=== PATIENT | female | born 1940 | race Caucasian/White ===

== ENCOUNTER 2023-08-29 11:12 | Outpatient (RCR) | payer OTHER, SELFPAY | END 2023-08-29 23:59 | disposition home or self-care (01) | LOC: CRHB 11:12 | PROVIDERS: ATTENDING PHYSICIAN Internal Medicine Cardiovascular Disease; FAMILY PHYSICIAN Internal Medicine Geriatric Medicine | DX: Z95.4 Presence of other heart-valve replacement (principal); I25.10 Atherosclerotic heart disease of native coronary artery without angina pectoris | CPT/HCPCS: G0422; G0423 ==

== ENCOUNTER 2023-09-29 11:59 | Outpatient (RCR) | payer OTHER, SELFPAY | END 2023-09-29 23:59 | disposition home or self-care (01) | LOC: CRHB 11:59 | PROVIDERS: ATTENDING PHYSICIAN Internal Medicine Cardiovascular Disease; FAMILY PHYSICIAN Internal Medicine Geriatric Medicine | DX: I35.0 Nonrheumatic aortic (valve) stenosis (principal); Z95.4 Presence of other heart-valve replacement; I10 Essential (primary) hypertension | CPT/HCPCS: G0422; G0423 ==

== ENCOUNTER 2023-10-31 11:40 | Outpatient (RCR) | payer OTHER, SELFPAY | END 2023-10-31 23:59 | disposition home or self-care (01) | LOC: CRHB 11:40 | PROVIDERS: ATTENDING PHYSICIAN Internal Medicine Cardiovascular Disease; FAMILY PHYSICIAN Internal Medicine Geriatric Medicine | DX: I35.0 Nonrheumatic aortic (valve) stenosis (principal); Z95.4 Presence of other heart-valve replacement | CPT/HCPCS: G0422; G0423 ==

== ENCOUNTER 2023-11-07 11:38 | Outpatient (RCR) | payer OTHER, SELFPAY | END 2023-11-07 23:59 | disposition home or self-care (01) | LOC: CRHB 11:38 | PROVIDERS: ATTENDING PHYSICIAN Internal Medicine Cardiovascular Disease; FAMILY PHYSICIAN Internal Medicine Geriatric Medicine | DX: Z95.4 Presence of other heart-valve replacement (principal) | CPT/HCPCS: G0422; G0423 ==

== ENCOUNTER → 2023-11-13 13:25 | Outpatient (REF) | payer OTHER, SELFPAY | LOC: MRI 13:25 | PROVIDERS: ATTENDING PHYSICIAN Otolaryngology; FAMILY PHYSICIAN Internal Medicine Geriatric Medicine | DX: H90.42 Sensorineural hearing loss, unilateral, left ear, with unrestricted hearing on the contralateral side (principal) | CPT/HCPCS: 70551 ==

== ENCOUNTER 2024-04-28 18:50 | Inpatient (IN) | payer OTHER, SELFPAY ==
[2024-04-28] VITALS (9 sets, daily range): BP systolic 104–141; BP diastolic 57–97; BMI 25.9; BMI 25.0
[2024-04-28 13:35] LABS: % Basophils 0.4 % (0-2); % Eosinophils 0.2 % (0-6); % Immature Granulocytes 0.3 % (0-0.5); % Lymphocytes 8.5 % (20.5-51.1); % Neutrophils 86.6 % (42.2-75.2); Absolute Basophils 0.1 10^3/uL (0-0.2); Absolute Lymphocytes 1.1 10^3/uL (1.2-3.4); Absolute Monocytes 0.5 10^3/uL (0.1-0.6); Absolute Neutrophils 11.4 10^3/uL (1.4-6.5); Hematocrit 47.5 % (37.0-47.0); Mean Corp Hgb Conc. 33.7 g/dL (33.0-37.0); Mean Corpuscular Hgb 30.7 pg (27.0-31.0); Mean Corpuscular Volume 91.2 fL (81.0-99.0); Mean Platelet Volume 9.5 fL (7.4-10.4); Nucleated Red Blood Cells % 0 %; Platelet Count 205 10^3/uL (130-400); Red Blood Cell Count 5.21 10^6/uL (4.20-5.40); Red Cell Dist. Width 13.9 % (11.5-14.5); White Blood Cell Count 13.1 10^3/uL (4.8-10.8)
--- NOTE | 2024-04-28 13:43 | ED.GENMED ---
History of Present Illness
General
Chief Complaint: Abdominal Pain
Time Seen by Provider: 04/28/24 13:15
History of Present Illness
History of Present Illness:
83-year-old female presents to the emergency department for evaluation of abdominal distention and lower abdominal discomfort beginning this morning, gradually worsening throughout the day. States that she cannot zip up her pants secondary to
distention. No fevers or chills. Denies any nausea or vomiting. Prior abdominal surgeries include hernia repair x 3, hysterectomy, and cholecystectomy.
Past History
Past History
ED Past Medical History: GERD, HTN, Hypothyroidism and Other (fainting spells)
ED Past Surgical History: Cardiac (Pacemaker), Cholecystectomy, Gynecological (Hysterectomy), Tonsilectomy and Other (Pancreas stent, hernias, )
Social History
Tobacco: Non-smoker
Alcohol: None
Personal:
Living: assisted living
Review of Systems
Review of Systems
Allergies reviewed?: Yes
All Other Systems: ROS reviewed and negative except as documented in HPI and ROS
Phy Exam
Physical Exam
Physical Exam:
GEN: Well appearing, NAD, WDWN
Eyes: PERRLA, EOMs intact, no scleral icterus
HENT: NCAT, oral mucosa moist
Lungs: CTAB, no wheezes, rales, rhonchi, normal chest wall excursion
Cardiac: RRR, no M/R/G, no peripheral edema. Radial pulses 2+ bilat
Abdomen: Soft, mildly distended predominantly lower abdomen, diffusely tender to all 4 quadrants, no rigidity
Neuro: AO x 3
MSK: No gross deformity or ecchymosis. No edema. No digital clubbing
Skin: No rashes, petechiae. Normal color, no pallor or jaundice.
Psych: Calm, cooperative, proper hygiene
Course
Orders/Labs/Results
Orders:
Orders
04/28/24 13:20
EKG [Electrocardiogram (*1)] Urgent
Reason for Study: Abdominal Pain
EKG- Treatment ONCE
04/28/24 13:23
Complete Blood Count/With Diff Urgent
Comprehensive Metabolic Panel Urgent
Lipase Urgent
Comment: ADD ON
04/28/24 13:43
Add On- LAB Urgent
Tests Added?: lipase
CT Abd/pel W Iv And Oral Contr Urgent
Comment:
Reason For Exam: abd pain/distention
Iohexol [Omnipaque] See Protocol PO NOW STA
04/28/24 14:03
Lactic Acid Urgent
04/28/24 15:45
Urinalysis Reflex To Culture Urgent
Date Specimen was Collected: 04/28/24
Time Specimen was Collected: 13:21
04/28/24 17:15
0.9% Sodium Chloride 1000 ml [Nss] 1,000 ml IV BOLUS
Morphine Sulfate 2 mg IV NOW STA
Ondansetron Injectable [Zofran] 4 mg IV NOW STA
04/28/24 18:15
Admit/Transfer Patient As Directed
Co-Sign Provider:
Level of Care: Inpatient admission
Assign to:: Telemetry
Physician / Group: Tristin
Diagnosis: Acute pancreatitis
Reason for Telemetry: Other
Other Reason for Telemetry: pancreatitis ;pacer in pace
Date to Stop Telemetry: 04/30/24
Time to Stop Telemetry: 11:00
Reason for Hospitalization: see progress note
Expected length of stay greater than two midnights?: Yes
ELOS- Estimated Length of Stay in days: 4
I certify the patient meets the requirements for IP care: Yes
04/28/24 18:16
PRN Pain Medication Management As Directed
May give lesser potent ordered pain med per pt: Yes
preference::
Protocol:: Medication orders for pain may be administered in a
manner that supports deferring to patient preference
when the pt is:
- Requesting an ordered lesser potent pain medication.
Least to most potent pain medications are defined
as: acetaminophen < NSAID < tramadol < opioids
(morphine, oxycodone, hydromorphone).
- Requesting a lesser dose of the same medication IF
ORDERED.
- Requesting a less intrusive route of administration
if both routes are prescribed by the provider (PO <
IV).
04/28/24 18:17
Code Status As Directed
Resuscitation Status: Full Code
04/30/24 11:00
DC Protocol for Telemetry ONCE
Abnormal Lab Results
04/28/24
13:23
WBC 13.1 H 10^3/uL
(4.8-10.8)
Hct 47.5 H %
(37.0-47.0)
Absolute Neuts (auto) 11.4 H 10^3/uL
(1.4-6.5)
Absolute Lymphs (auto) 1.1 L 10^3/uL
(1.2-3.4)
Neutrophils % 86.6 H %
(42.2-75.2)
Lymphocytes % 8.5 L %
(20.5-51.1)
BUN 18 H mg/dl
(7-17)
Glucose 116 H mg/dl
(70-99)
Lipase 3661 H* U/L
(23-300)
04/28/24 13:23
04/28/24 13:23
Vital Signs
Initial and Last Documented VS:
Initial Vital Signs
Temp Pulse Resp BP Pulse Ox
98.3 F 76 18 115/74 98
04/28/24 13:24 04/28/24 13:24 04/28/24 13:24 04/28/24 13:24 04/28/24 13:24
Last Documented Vital Signs
Temp Pulse Resp BP Pulse Ox
98.3 F 76 18 104/57 94
04/28/24 13:24 04/28/24 13:24 04/28/24 13:24 04/28/24 17:45 04/28/24 17:46
MDM/Problems Addressed
MDM/Problems Addressed:
Labs reveal acute pancreatitis, CT without evidence for acute process. Will admit for further management
*Critical Care Note
Total Time (30-74mins, 75-104mins- exclusive of procedures): Not Applicable
ED Attending Note
-
Portions of this chart may have been created with voice recognition software.� Occasional wrong word or��sound alike� substitutions may have occurred due to the inherent limitations of voice recognition software.
Discharge Plan
Departure
Patient Disposition: Admit
Date of Disposition: 04/28/24
Time of Disposition: 17:38
Admit to: Med/Surg
Presentation/result/management discussed w/ accepting MD/DO: Hospitalist
Discharge Problem:
Acute pancreatitis
Interventions
Interventions:
*Risk Screen - Suicide Last Done: 04/28/24 13:24
*General Assessment Last Done: 04/28/24 13:24
*Neglect/Abuse Screening Last Done: 04/28/24 13:24
*ED COVID-19 Vaccine History Last Done: 04/28/24 13:38
SU-Tqdcra-Zclxlttbba Assessment Last Done: 04/28/24 13:36
[2024-04-28 13:48] LABS: ALT (SGPT) 17 U/L (0-35); AST (SGOT) 27 U/L (14-36); Albumin 4.1 g/dl (3.5-5.0); Alkaline Phosphatase 94 U/L (38-126); Blood Urea Nitrogen 18 mg/dl (7-17); Calcium 9.5 mg/dl (8.4-10.2); Carbon Dioxide 30 mmol/L (22-30); Chloride 102 mmol/L (98-107); Estimated Creatinine Clearance 43 ml/min; Glucose 116 mg/dl (70-99); Potassium 4.3 mmol/L (3.5-5.1); Sodium 140 mmol/L (135-145); Total Bilirubin 1.1 mg/dl (0.2-1.3); Total Protein 6.8 g/dl (6.3-8.2); eGFR > 60.00
[2024-04-28] MEDS: OMNIPAQUE 50 ML PO (14:00)
[2024-04-28 14:27] LABS: Lactic Acid 1.2 mmol/L (0.7-2.0)
[2024-04-28 14:59] LABS: Lipase 3661 U/L (23-300)
[2024-04-28 15:52] LABS: Urine Albumin Negative (Neg - Trace); Urine Bilirubin Negative (Negative); Urine Character Clear (Clear); Urine Color Yellow; Urine Glucose Negative (Negative); Urine Ketone Negative (Negative); Urine Leukocyte Negative (Negative); Urine Nitrite Negative (Negative); Urine Occult Blood Negative (Negative); Urine Urobilinogen Negative (Neg - 1+)
[2024-04-28] MEDS: ZOFRAN 4 MG IV (17:43)
[2024-04-28] MEDS: NSS 1000 IV (17:43)
--- NOTE | 2024-04-28 18:24 | HPS.HSE ---
Family Physician
-
Family Physician: Britney Farris
Chief Complaint
-
Abdominal pain
History of Present Illness
Patient presents with acute abdominal pain which started last night.
It is in upper central abdomen which radiates to her back. 10 out of 10 on onset. Currently mild to moderate with a pain medication in the ER. She felt nauseous but never threw up. No diarrhea.
She had a similar intermittent symptoms in the last few months but subsided.
Denies any history of peptic ulcer disease. She has gallbladder out in the past.
She had a benign tumor on pancreas for which she had a resection. She remembers having a pancreatic stent but she is not sure if it is in or out. She had the surgery in 2018. It was done at [facility]. Denies prior history of
pancreatitis postsurgery.
Her lipase is high and clinical concern for pancreatitis. She is getting admitted for treatments and further evaluation.
Denies any fever chills.
Denies any shortness of breath.
Medical History
Past Medical History
Past Medical History: Reports GERD, HTN and Hypothyroidism
Past Surgical History: Reports Cardiac (Pacemaker; aortic stenosis status post TAVR), Cholecystectomy, Gynocological (Hysterectomy) and Other (Pancreatic surgery; hernia repair, hysterectomy)
Social History
Tobacco: Non-smoker
Alcohol: None
Drug: None
Living: Alone
Family History
Family History: Not pertinent
Allergies / Home Medications
Allergies reflects when Allergies were last updated in [facility].
Home Medications with original date entered in [facility]
Allergy/Medication List:
Allergies
Allergy/AdvReac Type Severity Reaction Status Date / Time
No Known Allergies Allergy Verified 04/28/24 13:22
Home Medications
calcium 600 mg (as carbonate)-vitamin D3 10 mcg (400 unit) tablet (Calcium 600 + D(3)) 1 tab PO HS 01/02/22
carvedilol 3.125 mg tablet (Coreg) 3.125 mg PO BID 01/02/22
cyanocobalamin (vitamin B-12) 1,000 mcg tablet (Vitamin B-12) 1,000 mcg PO HS 01/02/22
levothyroxine 25 mcg tablet (Synthroid) 25 mcg PO DAILY 01/02/22
yjqlufizfdnb-dqkepfow-fmrerl tablet 1 tab PO HS 01/02/22
Review of Systems
-
A 12 point ROS was completed and negative except as noted: Yes
Physical Exam
Vital Signs
Vital Signs
Temp Pulse Resp BP Pulse Ox
98.3 F 76 18 104/57 94
04/28/24 13:24 04/28/24 13:24 04/28/24 13:24 04/28/24 17:45 04/28/24 17:46
Physical Exam
General: Comfortable
HEENT: Moist mucous membranes
Respiratory: Clear
Cardiac: S1/S2 and Regular Rhythm; No Tachycardia
GI: Soft, Non Distended, Normal Bowel Sounds and Tender (All 4 quadrants but more pronounced in the epigastric area. No rebound or guarding.)
Musculoskeletal: No Edema
Neuro: AO x 3 and No Motor Deficits
Psych: Calm; No Confused
Laboratory Results
-
04/28/24 13:23
04/28/24 13:23
Laboratory Results
Lactic Acid 1.2 mmol/L (0.7-2.0) 04/28/24 14:03
Total Bilirubin 1.1 mg/dl (0.2-1.3) 04/28/24 13:23
AST 27 U/L (14-36) 04/28/24 13:23
ALT 17 U/L (0-35) 04/28/24 13:23
Alkaline Phosphatase 94 U/L (38-126) 04/28/24 13:23
Lipase 3661 U/L (23-300) H* 04/28/24 13:23
Data Reviewed
-
CT Scan: Report Reviewed by me (CT of abdomen pelvis)
Lab Data: Labs Reviewed by me
Impression/Plan
-
Acute abdominal pain with significant elevation in lipase. Clinical concern for acute pancreatitis. CT of the abdomen pelvis shows no acute pancreatitis or abscess at the current time. Previous pancreatic surgery noted. Patient cholecystectomy.
No current gallstone findings. LFTs are normal.
With her complex pancreatic anatomy need to rule out any pancreatic stricture.
Admit to hospital for further evaluation.
Start on IV fluids at 200 mL/h of Ringer lactate.
Start on pain regimen.
Keep him n.p.o. except for meds and sips of clears.
Follow lipase.
Consult GI.
Hypertension-continue with Coreg
Hypothyroidism-continue Synthroid
Full code
[2024-04-28] MEDS: COREG 3.125 MG PO (21:09)
[2024-04-28] MEDS: LR 1000 IV (21:10)
[2024-04-29] MEDS: LR 1000 IV ×4 (02:17→20:07)
[2024-04-29 03:25] VITALS: BP 121/80
[2024-04-29] MEDS: SYNTHROID 25 MCG PO (06:06)
[2024-04-29 07:30] VITALS: BP 147/68
[2024-04-29 07:55] LABS: Hematocrit 40.2 % (37.0-47.0); Hemoglobin 13.8 g/dL (12.0-16.0); Mean Corp Hgb Conc. 34.3 g/dL (33.0-37.0); Mean Corpuscular Hgb 31.5 pg (27.0-31.0); Mean Corpuscular Volume 91.8 fL (81.0-99.0); Mean Platelet Volume 10.4 fL (7.4-10.4); Platelet Count 177 10^3/uL (130-400); Red Blood Cell Count 4.38 10^6/uL (4.20-5.40); Red Cell Dist. Width 13.9 % (11.5-14.5); White Blood Cell Count 5.6 10^3/uL (4.8-10.8)
[2024-04-29 08:13] LABS: ALT (SGPT) 13 U/L (0-35); AST (SGOT) 21 U/L (14-36); Alkaline Phosphatase 77 U/L (38-126); Blood Urea Nitrogen 11 mg/dl (7-17); Calcium 8.3 mg/dl (8.4-10.2); Carbon Dioxide 24 mmol/L (22-30); Chloride 108 mmol/L (98-107); Estimated Creatinine Clearance 49 ml/min; Glucose 82 mg/dl (70-99); Lipase 1297 U/L (23-300); Potassium 3.9 mmol/L (3.5-5.1); Sodium 138 mmol/L (135-145); Total Bilirubin 1.4 mg/dl (0.2-1.3); Total Protein 5.3 g/dl (6.3-8.2); eGFR > 60.00
--- NOTE | 2024-04-29 08:59 | W.PN.HOSP.TC ---
Today's Communication/Plan
-
Clear liquids diet
IV fluids
Assessment / Plan
Assessment / Plan
Physical Exam
General: Comfortable
HEENT: Moist mucous membranes
Respiratory: Clear
Cardiac: S1/S2 and Regular Rhythm
GI: Soft, Non Distended, Normal Bowel Sounds and Tender (All 4 quadrants but more pronounced in the epigastric area. No rebound or guarding.)
Musculoskeletal: No Edema
Neuro: AO x 3 and No Motor Deficits
Psych: Calm
Assessment/Plan
Acute abdominal pain with significant elevation in lipase. Clinical concern for acute pancreatitis. CT of the abdomen pelvis shows no acute pancreatitis or abscess. Previous pancreatic surgery noted. Patient cholecystectomy. No current
gallstone findings. LFTs are normal.
With her complex pancreatic anatomy need to rule out any pancreatic stricture.
Continue IV fluids
Continue as needed pain regimen.
Okay for Clear Liquids Diet as per GI.
Consult GI who will contact GI at [facility] tomorrow
Pacemaker -- questionable whether MRI can be performed
Hypertension-continue with Coreg
Hypothyroidism-continue Synthroid
Full code
Anticipated Discharge: 24 - 48 hours
Subjective/Interval History
-
Date of Service: April 29, 2024
Patient was seen and examined. She reported her abdominal has improved, and denied any other complaints.
Objective Data
-
Labs:
Laboratory Results
04/29/24
06:34
WBC 5.6
Hgb 13.8
Hct 40.2
Plt Count 177
Sodium 138
Potassium 3.9
Chloride 108 H
Carbon Dioxide 24
BUN 11
Creatinine 0.7
Glucose 82
Calcium 8.3 L
Total Bilirubin 1.4 H
AST 21
ALT 13
Alkaline Phosphatase 77
Vital Signs:
Vital Signs
Temp Pulse Resp BP Pulse Ox
97.9 F 76 18 147/68 95
04/29/24 07:30 04/29/24 07:30 04/29/24 07:30 04/29/24 07:30 04/29/24 07:30
[2024-04-29] MEDS: COREG 3.125 MG PO ×2 (09:49→20:05)
[2024-04-29 11:55] VITALS: BP 132/77
[2024-04-29 15:11] VITALS: BP 121/72
--- NOTE | 2024-04-29 17:49 | CON.GI ---
Consultation
-
Date/Time Consultation Requested: 04/28/2024, 19:50
Date/Time Consultation Performed: 04/29/2024, 16:00
Requesting Provider: Dr. Crow
Performing Provider: Dr. Carreon
Reason for Consultation: pancreatitis
Medical History
Chief Complaint / HPI
Chief Complaint: abd pain
History of Present Illness:
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 Acute pain radiated to back
with nausea. Of note she has chronic issues having a BM after eating and saw Dr. Solorzano previously in our office outpatient.
Patient states she never had pancreatitis in past but Dr. 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
Allergies / Home Medications
Allergy/AdvReac Type Severity Reaction Status Date / Time
No Known Allergies Allergy Verified 04/28/24 13:22
�Medication �Instructions �Recorded
calcium 600 mg (as 1 tab PO HS Supplement 01/02/22
carbonate)-vitamin D3 10 mcg (400
unit) tablet (Calcium 600 + D(3))
carvedilol 3.125 mg tablet (Coreg) 3.125 mg PO BID Blood Pressure 01/02/22
cyanocobalamin (vitamin B-12) 1,000 mcg PO HS Supplement 01/02/22
1,000 mcg tablet (Vitamin B-12)
levothyroxine 25 mcg tablet 25 mcg PO DAILY Thyroid 01/02/22
(Synthroid)
puazansocesb-ebjkdbiv-wudlis tablet 1 tab PO HS Supplement 01/02/22
Review of Systems
Vital Signs
Temp Pulse Resp BP Pulse Ox
97.9 F 74 16 121/72 96
04/29/24 15:11 04/29/24 15:11 04/29/24 15:11 04/29/24 15:11 04/29/24 15:11
Physical Exam
Results
WBC 5.6 10^3/uL (4.8-10.8) 04/29/24 06:34
Hgb 13.8 g/dL (12.0-16.0) 04/29/24 06:34
Hct 40.2 % (37.0-47.0) 04/29/24 06:34
MCV 91.8 fL (81.0-99.0) 04/29/24 06:34
Plt Count 177 10^3/uL (130-400) 04/29/24 06:34
Absolute Neuts (auto) 11.4 10^3/uL (1.4-6.5) H 04/28/24 13:23
Sodium 138 mmol/L (135-145) 04/29/24 06:34
Potassium 3.9 mmol/L (3.5-5.1) 04/29/24 06:34
Chloride 108 mmol/L (98-107) H 04/29/24 06:34
Carbon Dioxide 24 mmol/L (22-30) 04/29/24 06:34
BUN 11 mg/dl (7-17) 04/29/24 06:34
Creatinine 0.7 mg/dL (0.6-1.0) 04/29/24 06:34
Calcium 8.3 mg/dl (8.4-10.2) L 04/29/24 06:34
Total Bilirubin 1.4 mg/dl (0.2-1.3) H 04/29/24 06:34
AST 21 U/L (14-36) 04/29/24 06:34
ALT 13 U/L (0-35) 04/29/24 06:34
Alkaline Phosphatase 77 U/L (38-126) 04/29/24 06:34
Lipase 1297 U/L (23-300) H* 04/29/24 06:34
Diagnostic Image Results:
Prior GI Procedures:
EGD:
Colonoscopy:
Assessment / Plan
-
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
Recommendations:
- advance diet to clear liquid
- check lipids/IgG4 although low suspicion
- IVF
- pain control
- unclear if able to do MRI with pacemaker
- I was unable to locate records in [facility] from [place] but per Dr. Solrozano's note 'if she were to have recurrent episodes of pancreatitis may need further dilation of her pancreatic jejunostomy' - pt mentioned she saw Dr. Ortega for surgery will
attempt to contact [facility] [facility]
- Option for diarrhea/BM after eating would be questran vs panc enzymes t/c starting outpatient
-
-
Thank you for consultation and allowing me to participate in the patient's care. Please call the remediation technician GI physician during the after hours with any questions or concerns.
[2024-04-29 19:28] VITALS: BP 120/77
[2024-04-29 23:15] VITALS: BP 118/74
[2024-04-30] MEDS: LR 1000 IV ×3 (01:29→11:29)
[2024-04-30 03:37] VITALS: BP 126/84
[2024-04-30] MEDS: SYNTHROID 25 MCG PO (06:11)
[2024-04-30 07:27] VITALS: BP 168/84
[2024-04-30 09:12] LABS: % Basophils 1.2 % (0-2); % Eosinophils 3.5 % (0-6); % Immature Granulocytes 0.2 % (0-0.5); % Lymphocytes 24.5 % (20.5-51.1); % Neutrophils 62.6 % (42.2-75.2); Absolute Basophils 0.1 10^3/uL (0-0.2); Absolute Eosinophils 0.2 10^3/uL (0-0.7); Absolute Monocytes 0.3 10^3/uL (0.1-0.6); Absolute Neutrophils 2.7 10^3/uL (1.4-6.5); Hematocrit 40.8 % (37.0-47.0); Mean Corp Hgb Conc. 34.3 g/dL (33.0-37.0); Mean Corpuscular Hgb 31.2 pg (27.0-31.0); Mean Corpuscular Volume 90.9 fL (81.0-99.0); Mean Platelet Volume 9.9 fL (7.4-10.4); Nucleated Red Blood Cells % 0 %; Platelet Count 180 10^3/uL (130-400); Red Blood Cell Count 4.49 10^6/uL (4.20-5.40); Red Cell Dist. Width 13.4 % (11.5-14.5); White Blood Cell Count 4.3 10^3/uL (4.8-10.8)
--- NOTE | 2024-04-30 09:44 | W.PN.GI.CBS2 ---
Addendum entered and electronically signed by Beatris Carreon MD 04/30/24 16:12:
I saw and examined the patient.
The MELT HELPER or PA's note was reviewed and I agree with the note.
Comment: 83-year-old female past medical history of insulinoma status post pancreatectomy and Lis-en-Y at [place] complicated by pancreatic jejunostomy stricture requiring dilation and stent with Dr. Rodriguez at [place] presenting with abdominal pain
and nausea found to have elevated lipase and normal imaging. Patient now tolerating low-fat diet. Okay from GI point of view for discharge. Recommend outpatient follow-up with Dr. Rodriguez to see if she would benefit from further dilation of her
pancreatic jejunostomy. I sent a message to Dr. Rodriguez but unable to reach him at this time.
I called patient's daughter Qing per patient request. GI will sign off. Please call with any questions or issues.
Original Note:
Today's Communication / Plan
-
Improving. Will advance to low fat diet.
Assessment / Plan
-
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
Recommendations:
- tolerating clear liquids well, feeling better today. Will advance to low fat diet.
- Lipids normal / IgG4 still pending
- IVF
- pain control
- unclear if able to do MRI with pacemaker
- Patient sees Dr. Rodriguez at [place]; saw him for recurrent pancreatitis and underwent ERCP 12/2020 s/p single balloon enteroscopy, balloon dilatation and prophylactic PD stenting
- She is known to Dr. Solorzano in our GI office and per his last note 'if she were to have recurrent episodes of pancreatitis may need further dilation of her pancreatic jejunostomy.' Dr. Carreon to reach out to Dr. Rodriguez.
- Option for diarrhea/BM after eating would be questran vs panc enzymes t/c starting outpatient
Subjective
Subjective
Date of Service: April 30, 2024
Feeling better. Currently without abdominal pain, nausea, vomiting, fever or chills.
Objective
Data Reviewed
Laboratory Data:
Laboratory Results
04/30/24 07:48
Laboratory Results
Total Bilirubin 1.4 mg/dl (0.2-1.3) H 04/29/24 06:34
AST 21 U/L (14-36) 04/29/24 06:34
ALT 13 U/L (0-35) 04/29/24 06:34
Alkaline Phosphatase 77 U/L (38-126) 04/29/24 06:34
Lipase 1297 U/L (23-300) H* 04/29/24 06:34
Vital Signs and I&O:
Vital Signs
Temp Pulse Resp BP Pulse Ox
98.7 F 74 19 168/84 97
04/30/24 07:27 04/30/24 07:27 04/30/24 07:27 04/30/24 07:27 04/30/24 07:27
I&O
04/29/24 04/30/24 05/01/24
06:59 06:59 06:59
Intake Total 1480 / 1480
Balance 1480 / 1480
Physical Exam
Physical Exam
Cardiology: Normal Sinus Rhythm
Pulmonary: Clear
GI: Soft, Non Distended, Non Tender and Normal Bowel Sounds
[2024-04-30 09:47] LABS: ALT (SGPT) 14 U/L (0-35); AST (SGOT) 23 U/L (14-36); Albumin 3.3 g/dl (3.5-5.0); Alkaline Phosphatase 83 U/L (38-126); Blood Urea Nitrogen 8 mg/dl (7-17); Calcium 8.5 mg/dl (8.4-10.2); Carbon Dioxide 26 mmol/L (22-30); Chloride 106 mmol/L (98-107); Direct Bilirubin 0.1 mg/dl (0.0-0.4); Estimated Creatinine Clearance 57 ml/min; Glucose 84 mg/dl (70-99); HDL Cholesterol 44 mg/dl; LDL Cholesterol, Calculated 95 mg/dl; Potassium 3.9 mmol/L (3.5-5.1); Sodium 140 mmol/L (135-145); Total Bilirubin 1.1 mg/dl (0.2-1.3); Total Cholesterol 158 mg/dl (50-199); Total Protein 5.7 g/dl (6.3-8.2); Triglyceride 98 mg/dl (10-149); Very Low Density Lipoprotein 19 mg/dl (0-30); eGFR > 60.00
[2024-04-30] MEDS: COREG 3.125 MG PO (09:47)
[2024-04-30 11:24] VITALS: BP 142/86
--- NOTE | 2024-04-30 14:42 | W.PN.HOSP.TC ---
Today's Communication/Plan
-
GI reached out to patient's river captain at [facility] -- waiting to hear back
Advance diet to low fat
Symptoms overall improved
Goal to reduced IV fluids rate soon -- checking with GI
Assessment / Plan
Assessment / Plan
Physical Exam
General: Comfortable
HEENT: Moist mucous membranes
Respiratory: Clear
Cardiac: S1/S2 and Regular Rhythm
GI: Soft, Non Distended, Normal Bowel Sounds and Mild B/L lower abdominal tenderness
Musculoskeletal: No Edema
Neuro: AO x 3 and No Motor Deficits
Psych: Calm
Assessment/Plan
Acute abdominal pain with significant elevation in lipase. Clinical concern for acute pancreatitis. CT of the abdomen pelvis shows no acute pancreatitis or abscess. Previous pancreatic surgery noted. Patient cholecystectomy. No current
gallstone findings. LFTs are normal.
With her complex pancreatic anatomy need to rule out any pancreatic stricture.
Continue IV fluids
Lipids normal / IgG4 pending
Continue as needed pain regimen.
Unclear if able to do MRI with pacemaker
Okay to advance to Low Fat Diet as per GI
Consult GI who will contact GI at [facility] tomorrow
Per GI, in the past it was noted that patient may need further dilation of her pancreatic jejunostomy -- Dr. Carreon to reach out to Dr. Rodriguez (GI at [place])
Per GI: Option for diarrhea/BM after eating would be questran vs panc enzymes t/c starting outpatient
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
Pacemaker -- questionable whether MRI can be performed
Hypertension-continue with Coreg
Hypothyroidism-continue Synthroid
Full code
DVT Prophylaxis: SCDs and Lovenox
Anticipated Discharge: 24 - 48 hours
Subjective/Interval History
-
Date of Service: April 30, 2024
Patient was seen and examined. She reported overall improvement in her abdominal pain.
Objective Data
-
Labs:
Laboratory Results
04/30/24
07:48
WBC 4.3 L
Hgb 14.0
Hct 40.8
Plt Count 180
Sodium 140
Potassium 3.9
Chloride 106
Carbon Dioxide 26
BUN 8
Creatinine 0.6
Glucose 84
Calcium 8.5
Total Bilirubin 1.1
AST 23
ALT 14
Alkaline Phosphatase 83
Vital Signs:
Vital Signs
Temp Pulse Resp BP Pulse Ox
98.3 F 77 19 142/86 96
04/30/24 11:24 04/30/24 11:24 04/30/24 11:24 04/30/24 11:24 04/30/24 11:24
I&O
04/29/24 04/30/24 05/01/24
06:59 06:59 06:59
Intake Total 1480 / 1480
Balance 1480 / 1480
[2024-04-30 15:50] VITALS: BP 147/86
--- NOTE | 2024-04-30 16:28 | CM ---
Patient was admitted from [facility] independent living, patient is YOCHA DEHE, patient lives alone in her apartment at [facility], patient is independent with adl's and ambulation, no dme.
PCP: Britney Farris
Pharmacy: formerly [facility].
Plan; Patient to return to her apartment at [facility] when stable.
--- NOTE | 2024-04-30 16:54 | W.DCSUMMARY ---
Discharge Summary
Discharge Data
Date of Admission: 04/28/24
Date of Discharge: 04/30/24
Total time spent discharging patient (in min): 35
-
Pending Results: No
Hospital Course
84 y/o female with past medical history of cholecystectomy, benign tumor of pancreas (insulinoma per gastroenterology notes) status post pancreatectomy and Lis-en-Y at [facility], pacemaker, aortic stenosis status post TAVR, GERD, HTN and
hypothyroidism presented with upper abdominal pain which radiated to her back. Given the nature of patient's abdominal pain, as well as elevated lipase, patient was suspected to have acute pancreatitis. Patient was then started on intravenous
fluids. Patient's symptoms improved and she was slowly able to tolerate a more advanced diet. Gastroenterology mentioned that per Dr. Solorzano's (events and promotions assistant's) note 'if she were to have recurrent episodes of pancreatitis may need further
dilation of her pancreatic jejunostomy.' Gastroenterology mentioned that patient could be discharged with close follow-up with her [facility] events and promotions assistant.
Discharge Plan
-
Patient Disposition: Home (Routine Discharge)
Discharge Diagnosis/Procedures: Presentation with abdominal pain and nausea and found to have elevated lipase and normal imaging
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
with Dr. Rodriguez at [facility]
Diet: Low Fat
Activity Restrictions/Additional Instructions:
Outpatient follow-up with Dr. Rodriguez (events and promotions assistant at [facility]) to see whether patient would benefit from further dilation of her pancreatic jejunostomy given recurrent episodes of pancreatitis
Option for diarrhea/bowel movement after eating would be questran versus pancreatic enzymes to consider starting outpatient
Instructions: Acute pancreatitis, Pancreatitis (DC)
Referrals:
Britney Farris MD [Family Provider] - in less than 1 week (Hospital Follow-Up)
Prescriptions:
Continued
cyanocobalamin (vitamin B-12) [Vitamin B-12] 1,000 mcg Tablet
1,000 mcg PO HS
carvedilol [Coreg] 3.125 mg Tablet
3.125 mg PO BID
levothyroxine [Synthroid] 25 mcg Tablet
25 mcg PO DAILY
fisxnelsjntn-efdomthx-kneiwj Tablet
1 tab PO HS
calcium carbonate-vitamin D3 [Calcium 600 + D(3)] 600 mg-10 mcg (400 unit) Tablet
1 tab PO HS
Discharge Orders:
Discharge Patient (As Directed); Ordered 04/30/24
Ordered By: Fernandez Tobin
Discharge Date and Time
Discharge Date/Time: 04/30/24 19:39
Print Language: [facility]
[2024-05-01 17:58] LABS: IgG Subclass 1 378 mg/dL (240-1118); IgG Subclass 2 249 mg/dL (124-549); IgG Subclass 3 29 mg/dL (21-134); IgG Subclass 4 110 mg/dL (1-123)
== END 2024-04-30 19:39 | disposition home or self-care (01) | DRG 440 ==
LOC: 4 WEST ACU 18:50
PROVIDERS: Physician Assistant; ADMITTING PHYSICIAN Internal Medicine; ATTENDING PHYSICIAN Hospitalist; EMERGENCY PHYSICIAN Emergency Medicine; FAMILY PHYSICIAN Internal Medicine Geriatric Medicine; OTHER PHYSICIAN Internal Medicine Gastroenterology
DX: K85.90 Acute pancreatitis without necrosis or infection, unspecified (principal); I10 Essential (primary) hypertension; E03.9 Hypothyroidism, unspecified
CPT/HCPCS: 74177; 80053; 80061; 81003; 82248; 82787; 83605; 83690; 85025; 85027; 93005; 96361; 96374; 99285; Q9967

== ENCOUNTER 2024-07-27 13:15 | Inpatient (IN) | payer OTHER, SELFPAY ==
[2024-07-27] VITALS (11 sets, daily range): BP systolic 112–157; BP diastolic 69–99; BMI 26.4; BMI 25.1
[2024-07-27 07:10] LABS: % Basophils 0.4 % (0-2); % Eosinophils 0.6 % (0-6); % Immature Granulocytes 0.5 % (0-0.5); % Lymphocytes 12.3 % (20.5-51.1); % Monocytes 6.3 % (1.7-9.3); % Neutrophils 79.9 % (42.2-75.2); Absolute Eosinophils 0.1 10^3/uL (0-0.7); Absolute Immature Granulocytes 0.1 10^3/uL (0-0.05); Absolute Lymphocytes 1.2 10^3/uL (1.2-3.4); Absolute Monocytes 0.6 10^3/uL (0.1-0.6); Absolute Neutrophils 7.7 10^3/uL (1.4-6.5); Hematocrit 43.3 % (37.0-47.0); Hemoglobin 14.8 g/dL (12.0-16.0); Mean Corp Hgb Conc. 34.2 g/dL (33.0-37.0); Mean Corpuscular Volume 90.6 fL (81.0-99.0); Mean Platelet Volume 9.9 fL (7.4-10.4); Nucleated Red Blood Cells % 0 %; Platelet Count 163 10^3/uL (130-400); Red Blood Cell Count 4.78 10^6/uL (4.20-5.40); Red Cell Dist. Width 13.6 % (11.5-14.5); White Blood Cell Count 9.6 10^3/uL (4.8-10.8)
[2024-07-27 07:20] LABS: ALT (SGPT) 14 U/L (0-35); AST (SGOT) 23 U/L (14-36); Albumin 3.5 g/dl (3.5-5.0); Alkaline Phosphatase 95 U/L (38-126); Blood Urea Nitrogen 18 mg/dl (7-17); Calcium 9.3 mg/dl (8.4-10.2); Carbon Dioxide 28 mmol/L (22-30); Chloride 104 mmol/L (98-107); Estimated Creatinine Clearance 48 ml/min; Glucose 130 mg/dl (70-99); Potassium 3.9 mmol/L (3.5-5.1); Sodium 137 mmol/L (135-145); Total Bilirubin 1.1 mg/dl (0.2-1.3); eGFR > 60.00
--- NOTE | 2024-07-27 07:51 | ED.GENMED ---
History of Present Illness
General
Chief Complaint: Abdominal Pain
Source: patient
Exam Limitations: none
Time Seen by Provider: 07/27/24 07:14
Nursing documentation reviewed up to this point in time: agreed with
History of Present Illness
History of Present Illness:
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 Patient
reports she does have a history of chronic pancreatitis and her GI physician is trying to get her into [facility] for a procedure. Pain started last night and this does feel similar to her pancreatitis pain. She was nauseous with this pain.
Currently she feels better. She reports it comes in waves.
Past History
Past History
ED Past Medical History: GERD, HTN, Hypothyroidism and Other (fainting spells)
ED Past Surgical History: Cardiac (Pacemaker), Cholecystectomy, Gynecological (Hysterectomy), Tonsilectomy and Other (Pancreas stent, hernias, )
Social History
Tobacco: Non-smoker
Alcohol: None
Personal:
Living: assisted living
Review of Systems
Review of Systems
Allergies reviewed?: Yes
All Other Systems: ROS reviewed and negative except as documented in HPI and ROS
Constitutional: Reports no symptoms; Denies fever, fatigue or chills
Respiratory: Reports no symptoms
Cardiac: Reports no symptoms
ABD/GI: Reports abdominal pain and nausea; Denies vomiting or diarrhea
: Reports no symptoms
Musculoskeletal: Reports no symptoms
Skin: Reports no symptoms
Neurological: Reports no symptoms
Psychiatric: Reports no symptoms
Phy Exam
General Physical Exam
General Presentation: no apparent distress
General age: appears stated age
General Skin: warm and dry
General Habitus: normal
General Mental: alert
General Hydration: appears well hydrated
Gastrointestinal Exam
Gastrointestinal Exam: soft and other (tender throughout upper abdomen)
Neurological Exam
Neurological Exam: alert and oriented x3
Musculoskeletal Exam
Musculoskeletal Exam: full ROM
Skin Exam
Skin Exam: normal color and warm/dry
Psychiatric Exam
Psychiatric Exam: normal mood/affect
Course
Orders/Labs/Results
Orders:
Orders
07/27/24 06:56
Complete Blood Count/With Diff Urgent
Comprehensive Metabolic Panel Urgent
Lipase Urgent
07/27/24 08:03
CT Abd/pel W Iv And Oral Contr Urgent
Comment:
Reason For Exam: pain /nausea
0.9% Sodium Chloride 1000 ml [Nss] 1,000 ml IV BOLUS
Iohexol [Omnipaque] See Protocol PO NOW STA
07/27/24 09:22
Urinalysis Reflex To Culture Urgent
Date Specimen was Collected: 07/27/24
Time Specimen was Collected: 09:07
Abnormal Lab Results
07/27/24
06:56
Abs Immat Gran (auto) 0.1 H 10^3/uL
(0-0.05)
Absolute Neuts (auto) 7.7 H 10^3/uL
(1.4-6.5)
Neutrophils % 79.9 H %
(42.2-75.2)
Lymphocytes % 12.3 L %
(20.5-51.1)
BUN 18 H mg/dl
(7-17)
Glucose 130 H mg/dl
(70-99)
Total Protein 6.0 L g/dl
(6.3-8.2)
Lipase > 4000 H* U/L
(23-300)
07/27/24 06:56
07/27/24 06:56
Vital Signs
Initial and Last Documented VS:
Initial Vital Signs
Temp Pulse Resp BP Pulse Ox
98.3 F 116 22 134/74 96
07/27/24 04:31 07/27/24 04:31 07/27/24 04:31 07/27/24 04:31 07/27/24 04:31
Last Documented Vital Signs
Temp Pulse Resp BP Pulse Ox
98.5 F 72 20 145/99 96
07/27/24 06:53 07/27/24 06:53 07/27/24 06:53 07/27/24 09:00 07/27/24 09:00
MDM/Problems Addressed
Differential Diagnosis Includes:
not limited to: pancreatitis
MDM/Problems Addressed:
As documented patient is an 84-year-old female with chronic pancreatitis presents to the ER complaining of pain consistent with pancreatitis she is nauseous with this pain. She has been seen and admitted for this in the past and it has been noted
that she may need to have further dilation of her pancreatic jejunostomy. Patient is in no acute distress and afebrile however does complain of pain is tender throughout and lipase is elevated greater than 4000 consistent with pancreatitis. She
will need to be admitted. Fluids given.
Chronic conditions affecting care:
Chronic pancreatitis history of insulinoma, pancreectomy and Lis-en-Y at [facility]
*Radiology
Radiology exam reviewed: radiology read reviewed
*Pulse Oximetry
Patient hypoxic: no
*Critical Care Note
Total Time (30-74mins, 75-104mins- exclusive of procedures): Not Applicable
Data Reviewed
Review of Other/Old Records Reveals: Labs, Radiology Studies and Discharge Summary
Source: patient
ED Attending Note
-
Portions of this chart may have been created with voice recognition software.� Occasional wrong word or��sound alike� substitutions may have occurred due to the inherent limitations of voice recognition software.
Discharge Plan
Departure
Patient Disposition: Admit
Date of Disposition: 07/27/24
Time of Disposition: 12:00
Admit to: Med/Surg
Admit to doctor: hospitalist
Presentation/result/management discussed w/ accepting MD/DO: Hospitalist
Patient with high blood pressure during this ER visit?: Yes
Condition: Fair
Covid-19: Not Applicable
Discharge Problem:
Acute pancreatitis
Prescriptions:
No Action
carvedilol [Coreg] 3.125 mg Tablet
3.125 mg PO BID
levothyroxine [Synthroid] 25 mcg Tablet
25 mcg PO DAILY
cnzxlfewqiko-zisievxw-hvlvud Tablet
1 tab PO HS
amlodipine 10 mg Tablet
10 mg PO DAILY
vitamin V65-natwp acid 0.5-1 mg Tablet
1 tab PO DAILY
calcium carbonate-vitamin D3 [Calcium 600 + D(3)] 600 mg-10 mcg (400 unit) Tablet
1 tab PO HS
Referrals:
UNKNOWN,NO INTERVIEW [Family Provider] -
Interventions
Interventions:
*Risk Screen - Suicide Last Done: 07/27/24 04:31
*General Assessment Last Done: 07/27/24 06:53
*Neglect/Abuse Screening Last Done: 07/27/24 04:31
ED- Fall Risk Assessment Last Done: 07/27/24 06:53
*ED COVID-19 Vaccine History Last Done: 07/27/24 06:53
XR-Vmqlnl-Ubnsncyskv Assessment Last Done: 07/27/24 06:53
Discharge Date and Time
Print Language: MALTESE
[2024-07-27 07:54] LABS: Lipase > 4000 U/L (23-300)
[2024-07-27] MEDS: OMNIPAQUE 50 ML PO (08:09)
[2024-07-27] MEDS: NSS 1000 IV ×3 (08:10→20:46)
[2024-07-27 09:39] LABS: Urine Albumin Negative (Neg - Trace); Urine Bilirubin Negative (Negative); Urine Character Clear (Clear); Urine Color Yellow; Urine Glucose Negative (Negative); Urine Ketone Negative (Negative); Urine Leukocyte Negative (Negative); Urine Nitrite Negative (Negative); Urine Occult Blood Negative (Negative); Urine Urobilinogen Negative (Neg - 1+)
--- NOTE | 2024-07-27 12:12 | HPS.HSE ---
Family Physician
-
Family Physician: NO INTERVIEW UNKNOWN
Chief Complaint
-
Abdominal pain through the back, nausea
History of Present Illness
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 She does report history of chronic pancreatitis and her GI physician is trying to get her into [facility] for a
procedure. She states the pain started last night generalized abdominal pain with nausea radiating to her back. She reports it comes in waves like strength. She denies fever, chills, vomiting, diarrhea, constipation, chest pain, palpitations,
cough, shortness of breath, headache, sore throat. Other past medical history includes chronic pancreatitis, benign [facility] permanent pacemaker, aortic stenosis status post TAVR,
GERD, HTN,' fainting spells' hypothyroidism, FALSE PASS.
Medical History
Past Medical History
Past Medical History: Reports Other
Additional Past Medical History:
chronic pancreatitis
[facility]ign [facility]
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
permanent pacemaker
aortic stenosis status post TAVR
GERD
HTN
' fainting spells' -syncope
Hypothyroidism
FALSE PASS
Past Surgical History: Reports Other
Additional Past Surgical History:
Insulin of pancreas status post Lis-en-Y [facility]
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
permanent pacemaker
Cholecystectomy
Aortic stenosis status post TAVR
Social History
Tobacco: Non-smoker
Alcohol: None
Drug: None
Personal: Single
Living: Alone ([facility] independent)
Employment: Retired
Family History
Family History: Other (Mother leukemia, father in his 80s unsure patient has 1 brother 1 sister she believes is healthy)
Allergies / Home Medications
Allergies reflects when Allergies were last updated in [email or web address].
Home Medications with original date entered in [email or web address]
Allergy/Medication List:
Allergies
Allergy/AdvReac Type Severity Reaction Status Date / Time
No Known Allergies Allergy Verified 07/27/24 04:39
Home Medications
carvedilol 3.125 mg tablet (Coreg) 3.125 mg PO BID Blood Pressure 01/02/22
levothyroxine 25 mcg tablet (Synthroid) 25 mcg PO DAILY Thyroid 01/02/22
fnuulcfotzsj-wpmrzjms-fkfscf tablet 1 tab PO HS Supplement 01/02/22
amlodipine 10 mg tablet 10 mg PO DAILY 07/27/24
calcium 600 mg (as carbonate)-vitamin D3 10 mcg (400 unit) tablet (Calcium 600 + D(3)) 1 tab PO HS 07/27/24
vitamin B12 0.5 mg-folic acid 1 mg tablet 1 tab PO DAILY 07/27/24
Review of Systems
-
History Source: Patient
A 12 point ROS was completed and negative except as noted: Yes
Constitutional: Denies Fever or Chills
EENT: Denies Sore Throat or Runny Nose
Respiratory: Denies Cough or Trouble Breathing
Cardiac: Denies Chest Pain, Diaphoresis, Palpitations or Syncope
Abdomen/GI: Reports Abdominal Pain (Generalized) and Nausea; Denies Vomiting, Diarrhea, Constipated, Bloody Stools, Black Stools or Anorexia
: Denies Frequency, Flank Pain, Incontinence, Difficulty Voiding, Urgency, Bleeding or Dark Urine
Musculoskeletal: Denies Joint Pain or Edema
Skin: Denies Itching or Rash
Neurological: Denies Dizzy, Headache or Weakness
Endocrine: Reports No Symptoms
Hematologic/Lymphatic: Reports No Symptoms
Psych: Reports Calm
Physical Exam
Vital Signs
Vital Signs
Temp Pulse Resp BP Pulse Ox
98.5 F 72 20 145/99 96
07/27/24 06:53 07/27/24 06:53 02/25/25 06:53 07/27/24 09:00 07/27/24 09:00
Physical Exam
General: Comfortable and Conversant; No Fever or Chills
HEENT: NormoCephalic, Anicteric, Moist mucous membranes, PERRLA, Ione Conjunctivae and No Ptosis
Respiratory: Clear; No Wheezes, Rales or Rhonchi
Cardiac: S1/S2 and Regular Rhythm; No Murmur, Rub, Gallop or Peripheral Edema
Breast: Deferred by me
GI: Soft, Non Distended, Normal Bowel Sounds and Tender (Generalized)
Rectal: Deferred by Provider
Genito-urinary: Deferred by me
Musculoskeletal: No Clubbing, No Cyanosis and No Edema
Skin: Warm and Dry; No Rash or Jaundice
Neuro: AO x 3, No Motor Deficits, Nonfocal/grossly intact, Cranial Nerves Intact and Other (FALSE PASS); No Slurred Speech, Facial Droop, Tremors or Sedated
Psych: Calm
Laboratory Results
-
07/27/24 06:56
07/27/24 06:56
Laboratory Results
Total Bilirubin 1.1 mg/dl (0.2-1.3) 07/27/24 06:56
AST 23 U/L (14-36) 07/27/24 06:56
ALT 14 U/L (0-35) 07/27/24 06:56
Alkaline Phosphatase 95 U/L (38-126) 07/27/24 06:56
Lipase > 4000 U/L (23-300) H* 07/27/24 06:56
Impression/Plan
-
Impression/plan:
Admit to [facility]
#Acute on chronic pancreatitis
#History insulinoma pancreas status post Lis-en-Y at [place]
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
Lipase >4000 Prior lipase 1297 April 2024
-Consult GI
-N.p.o. except meds
-IV NSS 150 cc/hr
-IV Dilaudid, IV Zofran
-Follow CBC, CMP, lipase
CT abdomen pelvis:Postoperative changes of likely partial pancreatectomy. There is mild dilation of the pancreatic duct with intraluminal gas of the remnant pancreatic body/tail which is unchanged from prior
and likely related to the pancreaticojejunostomy. There is questionable stranding in the region of the pancreaticojejunostomy which may represent pancreatitis.
Stable hepatic cysts.
#Permanent pacemaker
#Aortic stenosis status post TAVR
# GERD
No reported meds will give IV Protonix 40 mg daily
#HTN
BP 145/99
Continue Coreg 3.125 mg twice daily, amlodipine 10 mg daily with hold parameters
' fainting spells'? Syncope versus orthostasis
Monitor blood pressure
#Hypothyroidism
-Continue Synthroid 25 mcg p.o. daily
#FALSE PASS
DVT prophylaxis
Subcu Lovenox
Full code
--- NOTE | 2024-07-27 12:39 | W.PN.UPDATE ---
Update Note
Progress Note Update
This is an addendum to the H&P written by Marisol Jain on 07/27/2024. Patient seen and examined independently with [employer].
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
TAVR hypertension, hypothyroidism, GERD, presenting for abdominal pain since last night associated with nausea.
Vital signs normal. Labs unremarkable apart from lipase of 4000 increased [address] abdomen pelvis shows postoperative changes of likely partial pancreatectomy, mild dilation of the pancreatic duct with intraluminal gas of the
remnant pancreatic body/tail which is unchanged from prior likely related to pancreaticojejunostomy. Questionable stranding in the region of the pancreaticojejunostomy which may represent pancreatitis.
Presentation consistent with acute on chronic pancreatitis. N.p.o., IV fluids, Zofran, Dilaudid. As per her there was discussion about her having her having pancreatic stent replaced at [facility] versus [facility] but this could not be arranged. GI
consulted.
--- NOTE | 2024-07-27 13:37 | EDRN ---
this RN called the receiving unit and notified them that paper report was going to be tubed up
[2024-07-27] MEDS: NSS (PRESERVATIVE FREE) 10 ML IV (13:41)
[2024-07-27] MEDS: PROTONIX IV 40 MG IV (13:41)
--- NOTE | 2024-07-27 13:59 | CON.GI ---
Addendum entered and electronically signed by Shirley Bolaños MD 07/27/24 17:01:
I saw and examined the patient.
The TRIPLE AIR VALVE TESTER's note was reviewed and I agree with the note.
Comment: This is a 84-year-old female with past medical history as listed below including pancreatic insulinoma status post partial pancreatectomy with pancreatico jejunostomy in 2015 at [facility]. She has had a few episodes since then of
pancreatitis and was diagnosed with PJ anastomotic stricture and she had single balloon enteroscopy assisted ERCP done with Dr. Ralph Rodriguez in [facility] in 2020 with dilation and stent placement which was subsequently removed. She sees "Ish"Rashad and was also seen by Dr. Gaines. she was admitted here in April 2024 with symptoms of abdominal pain elevated lipase level concern for recurrent pancreatitis related to stricture and was recommended to follow-up with Dr. Rodriguez for repeat
dilation and attempt was made to reach him directly by Dr. Carreon and also Dr. Gaines to get patient to follow up at [facility] for the repeat procedure but patient states she never got a call from [facility] to schedule. So Dr. Gaines had also reached
out to Dr. Holbrook at [facility] to get the procedure done at [facility] and apparently [facility] has been trying to reach the patient and was unable to get hold of the patient. She now presents with abdominal pain which is worsening since yesterday on admission
lipase was noted to be greater than [address] is consistent with recurrent pancreatitis. LFTS normal, afebrile.
Assessment and plan recurrent pancreatitis related to known history of PJ anastomotic stricture and will need repeat intervention with dilation of the stricture and repeat stent placement. Unfortunately patient has not received a call from
[facility] to schedule and Dr. Gaines has also reached out to physicians both at [facility] and at [facility]. [facility] has been trying to reach the patient to schedule but unfortunately patient apparently had not answered the calls. We will try to reach out and
set up the appt/procedure at [facility] for the patient prior to DC. Continue supportive care with pain control and IV fluids.
Addendum entered and electronically signed by GEETA Leuvano 07/27/24 16:32:
Dr. Gaines reviewed with Dr. Carol [facility] at [facility] to expidite follow up appt. [facility] given patient and daughters number. I left message with daughter to notify of anticipated call.
Original Note:
Consultation
-
Date/Time Consultation Requested: 07/27/24 1230
Date/Time Consultation Performed: 07/27/24 1400
Requesting Provider: GEETA Hoffman
Performing Provider: GEETA Malone, Shirley Bolaños MD
Reason for Consultation: pancreatitis
Medical History
Chief Complaint / HPI
Chief Complaint: abd pain
History of Present Illness:
Pt is a 84yo presents with hx hearing loss, prior varun, pacer, with prior TAVR, GERD and benign pancreatic tumor-- insulinoma s/p pancreatectomy with jasmin-en-y at [facility] in 2015. She initially did well post -op but had several episodes of
pancreatitis and had PJ anastomotic stricture noted. She completed single balloon enteroscopy assisted ERCP at [facility] in 2020 with dilation of PJ anastomosis and stent placement. She was doing well until 04/2024with elevated lipase and concern
for recurrent pancreatitis. During that admission there was concern patient may need dilation of her pancreatic jejunostomy. CT during that admission with dilated PD upstream from PJ anastomosis. She had follow up with Dr. Gaines in June but
unable to do single balloon guarded ERCP at and could try possible pediatric colonoscopy guided but unable to guarantee if he could reach PJ anastomosis.
She was awaiting follow up at [facility] or [facility] and now presents with recurrent abdominal/back pain with nausease and lipase >[address] with Postoperative changes of likely partial pancreatectomy. There is mild dilation of
the pancreatic duct with intraluminal gas of the remnant pancreatic body/tail which is unchanged from prior and likely related to the pancreaticojejunostomy. There is questionable stranding in the region of the pancreaticojejunostomy which may
represent pancreatitis. Pt otherwise denies wt loss, dysphagia, GERD, diarrhea, constipation, or rectal bleeding. No NSAID or anticoagulation use.
Past Medical History
Past Medical History: GERD
Past Surgical History: Cardiac (TAVR, pacer) and Other (jasmin-en-y bypass for benign panc tumor )
Social History
Tobacco: Non-Smoker
Alcohol: None
Drug: None
Living: Alone
Employment: Retired
Family History
Family History: Other ( no family hx colon CA or GI problems )
Allergies / Home Medications
Allergy/AdvReac Type Severity Reaction Status Date / Time
No Known Allergies Allergy Verified 07/27/24 04:39
�Medication �Instructions �Recorded
carvedilol 3.125 mg tablet (Coreg) 3.125 mg PO BID Blood Pressure 01/02/22
levothyroxine 25 mcg tablet 25 mcg PO DAILY Thyroid 01/02/22
(Synthroid)
mglhccgxzjdj-gbzxwgjh-rbuqkl tablet 1 tab PO HS Supplement 01/02/22
amlodipine 10 mg tablet 10 mg PO DAILY 07/27/24
calcium 600 mg (as 1 tab PO HS 07/27/24
carbonate)-vitamin D3 10 mcg (400
unit) tablet (Calcium 600 + D(3))
vitamin B12 0.5 mg-folic acid 1 mg 1 tab PO DAILY 07/27/24
tablet
Review of Systems
-
History Source: Patient
Constitutional: Reports No Symptoms
EENT: Reports No Symptoms
Respiratory: Reports No Symptoms
Cardiac: Reports No Symptoms
Abdomen/GI: Reports Abdominal Pain (but improving since admission) and Nausea
: Reports No Symptoms
Musculoskeletal: Reports No Symptoms
Skin: Reports No Symptoms
Neurological: Reports Weakness
Endocrine: Reports No Symptoms
Hematologic/Lymphatic: Reports No Symptoms
Vital Signs
Temp Pulse Resp BP Pulse Ox
98.5 F 82 16 138/87 96
07/27/24 06:53 07/27/24 13:53 07/27/24 13:53 07/27/24 13:53 07/27/24 13:53
Physical Exam
Exam
General: Well Developed, Well Nourished and No Apparent Distress
HEENT: Normocephalic and Anicteric
Respiratory: Clear
Cardiac: Regular Rhythm
GI: Soft, Non Distended and Tender (mild epigastric )
Musculoskeletal: No Clubbing and No Cyanosis
Skin: Warm and Dry
Neuro: Awake, Alert and AO x 3
Psych: Calm
Results
WBC 9.6 10^3/uL (4.8-10.8) 07/27/24 06:56
Hgb 14.8 g/dL (12.0-16.0) 07/27/24 06:56
Hct 43.3 % (37.0-47.0) 07/27/24 06:56
MCV 90.6 fL (81.0-99.0) 07/27/24 06:56
Plt Count 163 10^3/uL (130-400) 07/27/24 06:56
Absolute Neuts (auto) 7.7 10^3/uL (1.4-6.5) H 07/27/24 06:56
Sodium 137 mmol/L (135-145) 07/27/24 06:56
Potassium 3.9 mmol/L (3.5-5.1) 07/27/24 06:56
Chloride 104 mmol/L (98-107) 07/27/24 06:56
Carbon Dioxide 28 mmol/L (22-30) 07/27/24 06:56
BUN 18 mg/dl (7-17) H 07/27/24 06:56
Creatinine 0.7 mg/dL (0.6-1.0) 07/27/24 06:56
Calcium 9.3 mg/dl (8.4-10.2) 07/27/24 06:56
Total Bilirubin 1.1 mg/dl (0.2-1.3) 07/27/24 06:56
AST 23 U/L (14-36) 07/27/24 06:56
ALT 14 U/L (0-35) 07/27/24 06:56
Alkaline Phosphatase 95 U/L (38-126) 07/27/24 06:56
Lipase > 4000 U/L (23-300) H* 07/27/24 06:56
Diagnostic Image Results:
07/27/24 CT Abd/pel W Iv And Oral Contr
Postoperative changes of likely partial pancreatectomy. There is mild dilation of the pancreatic duct with intraluminal gas of the remnant pancreatic body/tail which is unchanged from prior and likely related to the pancreaticojejunostomy. There is
questionable stranding in the region of the pancreaticojejunostomy which may represent pancreatitis. Recommend correlation with lipase values.
04/28/24 CT Abd/pel W Iv And Oral Contr
No acute inflammatory process within the abdomen or pelvis. Minor diverticulosis without acute diverticulitis. No bowel obstruction. No obstructive uropathy.
Previous pancreatic surgery, as described. Correlation with surgical history necessary. No evidence to suggest acute pancreatitis.
2 tiny hepatic cyst. Small left renal cyst.
Stable hepatic cysts.
Prior GI Procedures:
2020 [facility] prior single balloon ERCP assisted for stricture with stent placement
Assessment / Plan
-
Pt is a 84yo presents with hx hearing loss, prior varun, pacer, with prior TAVR, GERD, and benign pancreatic tumor-- insulinoma s/p pancreatectomy with jasmin-en-y at [facility] in 2015. She initially did well post -op but had several episodes of
pancreatitis and had PJ anastomotic stricture noted. She completed single balloon enteroscopy assisted ERCP at [facility] in 2020 with dilation of PJ anastomosis and stent placement. She was doing well until 04/2024with elevated lipase and concern
for recurrent pancreatitis. During that admission there was concern patient may need dilation of her pancreatic jejunostomy. CT during that admission with dilated PD upstream from PJ anastomosis. She had follow up with Dr. Gaines in June but
unable to do single balloon guarded ERCP at and could try possible pediatric colonoscopy guided but unable to guarantee if he could reach PJ anastomosis.
-recurrent pancreatitis with last episode 04/2024
-hx benign pancreatic tumor-- insulinoma s/p pancreatectomy with jasmin-en-y at [facility] in 2015
- PJ anastomotic stricture with prior single balloon enteroscopy assisted ERCP at [facility] in 2020 with dilation of PJ anastomosis and stent placement
other med problems:
-varun
-pacer
- with prior TAVR
-GERD
PLAN:
Etiology of recurrent pancreatitis with concern for recurrent PJ anastomotic stricture vs other
cont IVF at 150ml/hr
pt now feeling better with add clear diet
Discussed via tiger text with Dr. Gaines -- he will reach out to tertiary center to contact pt for scheduling single balloon enteroscopy assisted ERCP
trend labs
will add CRP
pain control per hospitalist
will follow
-
-
Thank you for consultation and allowing me to participate in the patient's care. Please call the pollution control engineer GI physician during the after hours with any questions or concerns.
--- NOTE | 2024-07-27 15:30 | PTCARENOTE ---
received pt to 3W from ED. Oriented to room, VSS obtained, assessment done. Bed in lowest position, call mclaughlin within reach, orders verified, continue plan of care. Pt resting comfortably
[2024-07-27] MEDS: LOVENOX 40 MG SC (18:18)
[2024-07-27] MEDS: COREG 3.125 MG PO (20:47)
[2024-07-27] MEDS: THERAGRAN 1 TABLET PO (20:48)
[2024-07-27] MEDS: OSCAL 500 + D 500 MG PO (20:48)
--- NOTE | 2024-07-28 04:12 | PTCARENOTE ---
Pt assessed as per work list flow sheet. Pt has had no c/o pain. No s/s of distress assessed yet this shift. Will continue to monitor.
[2024-07-28] MEDS: NSS 1000 IV ×2 (05:07→15:16)
[2024-07-28] MEDS: SYNTHROID 25 MCG PO (05:07)
[2024-07-28 05:54] LABS: % Basophils 0.9 % (0-2); % Eosinophils 3.7 % (0-6); % Immature Granulocytes 0.5 % (0-0.5); % Lymphocytes 36.5 % (20.5-51.1); % Monocytes 8.1 % (1.7-9.3); % Neutrophils 50.3 % (42.2-75.2); Absolute Eosinophils 0.2 10^3/uL (0-0.7); Absolute Lymphocytes 1.6 10^3/uL (1.2-3.4); Absolute Monocytes 0.4 10^3/uL (0.1-0.6); Absolute Neutrophils 2.2 10^3/uL (1.4-6.5); Hematocrit 40.2 % (37.0-47.0); Hemoglobin 13.8 g/dL (12.0-16.0); Mean Corp Hgb Conc. 34.3 g/dL (33.0-37.0); Mean Corpuscular Hgb 31.4 pg (27.0-31.0); Mean Corpuscular Volume 91.4 fL (81.0-99.0); Mean Platelet Volume 10.1 fL (7.4-10.4); Nucleated Red Blood Cells % 0 %; Platelet Count 147 10^3/uL (130-400); Red Cell Dist. Width 13.4 % (11.5-14.5); White Blood Cell Count 4.3 10^3/uL (4.8-10.8)
[2024-07-28 06:00] VITALS: BMI 25.3
[2024-07-28 06:51] LABS: ALT (SGPT) 12 U/L (0-35); AST (SGOT) 20 U/L (14-36); Albumin 2.9 g/dl (3.5-5.0); Alkaline Phosphatase 85 U/L (38-126); Blood Urea Nitrogen 8 mg/dl (7-17); Calcium 8.5 mg/dl (8.4-10.2); Carbon Dioxide 25 mmol/L (22-30); Chloride 109 mmol/L (98-107); Estimated Creatinine Clearance 48 ml/min; Glucose 98 mg/dl (70-99); Lipase 1486 U/L (23-300); Potassium 3.8 mmol/L (3.5-5.1); Sodium 139 mmol/L (135-145); Total Bilirubin 1.1 mg/dl (0.2-1.3); Total Protein 5.2 g/dl (6.3-8.2); eGFR > 60.00
[2024-07-28 07:05] VITALS: BP 148/103
--- NOTE | 2024-07-28 08:25 | W.PN.HOSP.TC ---
Today's Communication/Plan
-
Continue supportive care
Transfer request sent
Assessment / Plan
Assessment / Plan
84-year-old female with benign tumor of pancreas, chronic pancreatitis, s/p Lis-en-Y at [place], aortic stenosis s/p TAVR, GERD, essential hypertension, hypothyroidism, presenting with generalized abdominal pain radiating to the back with nausea.
Denies fever, chills, vomiting, constipation, chest pain, shortness of breath, palpitation. She does have pancreatic stent and permanent pacemaker.
Assessment/plan:
#Acute on chronic pancreatitis
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
-Lipase greater than 4000 today (1297 in 04/25), will trend.
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
-Recurrent symptoms, last 04/25 [facility].
-Symptoms greatly improved, lipase trending down, tolerated clears.
-Advance diet to LFD.
-Stop IV fluid per GI.
-Appreciate GI.
-Patient wants to be transferred, arrangements underway with both [facility] and [facility] transfer centers for expedited follow-up.
-I called [facility] transfer center, patient well-known to GI team, waiting for callback, will transfer patient if accepted.
-Pain control as needed.
-Follow CBC, CMP.
#GERD
-Continue Protonix 40 mg daily.
#Essential hypertension
-Continue Coreg 3.125 mg BID, amlodipine 10 mg with holding parameters.
#Fainting spells
-Check orthostatics.
#Hypothyroidism
-Continue Synthroid.
DVT PPx: Lovenox
CODE STATUS: Full code
Data:
CT abdomen/pelvis 07/27/2024:
Postoperative changes of likely partial pancreatectomy. There is mild dilation of the pancreatic duct with intraluminal gas of the remnant pancreatic body/tail which is unchanged from prior and likely related to the pancreaticojejunostomy. There is
questionable stranding in the region of the pancreaticojejunostomy which may represent pancreatitis. Recommend correlation with lipase values.
Stable hepatic cysts.
Anticipated Discharge: > 48 hours
Subjective/Interval History
-
Date of Service: July 28, 2024
I saw and examined the patient. Patient was sitting in bed in no acute distress. Denies chest pain, shortness of breath, fever or chills. Reports mild epigastric pain otherwise feels better today.
Objective Data
-
Labs:
Laboratory Results
07/28/24
05:27
WBC 4.3 L
Hgb 13.8
Hct 40.2
Plt Count 147
Sodium 139
Potassium 3.8
Chloride 109 H
Carbon Dioxide 25
BUN 8
Creatinine 0.7
Glucose 98
Calcium 8.5
Total Bilirubin 1.1
AST 20
ALT 12
Alkaline Phosphatase 85
Vital Signs:
Vital Signs
Temp Pulse Resp BP Pulse Ox
97.4 F 81 19 148/103 98
07/28/24 07:05 07/28/24 07:05 07/28/24 07:05 07/28/24 07:05 07/28/24 07:05
I&O
07/27/24 07/28/24 07/29/24
06:59 06:59 06:59
Intake Total 1200 / 1200
Balance 1200 / 1200
Review of Systems
-
History Source: Patient
All other systems: Not reviewed unless documented
Constitutional: Reports No Symptoms; Denies Fever
Respiratory: Reports No Symptoms; Denies Trouble Breathing or Wheezing
Cardiac: Reports No Symptoms; Denies Chest Pain or Palpitations
Abdomen/GI: Reports Abdominal Pain
Genitourinary: Reports No Symptoms
Skin: Reports No Symptoms
Physical Exam
-
General: Well Developed and No Apparent Distress
HEENT: Normocephalic, Atraumatic and Moist Mucous Membranes
Respiratory: Clear to Auscultation
Cardiac: Regular Rhythm and S1/S2; Negative Murmur, Rub or Gallop
GI: Soft, Nondistended, Normal Bowel Sounds and Tender (Mid epigastric); Negative Organomegaly
Rectal: Deferred by Provider
Musculoskeletal: No Clubbing, No Cyanosis and No Edema
Skin: Warm; Negative Rash
Neuro: Awake, AO x 3 and Nonfocal/Grossly Intact
Psych: Calm
Data Reviewed
-
CT Scan: Image personally visualized and interpreted, Report Reviewed by me and Discussed with Physician
Labs: Labs Reviewed by me and Discussed with Physician
Old Records: Reviewed
--- NOTE | 2024-07-28 08:30 | W.PN.GI.CBS2 ---
Today's Communication / Plan
-
low fat diet
If tolerates OK to DC home
Assessment / Plan
-
Pt is a 84yo presents with hx hearing loss, prior varun, pacer, with prior TAVR, GERD, and benign pancreatic tumor-- insulinoma s/p pancreatectomy with jasmin-en-y at [facility] in 2015. She initially did well post -op but had several episodes of
pancreatitis and had PJ anastomotic stricture noted. She completed single balloon enteroscopy assisted ERCP at [facility] in 2020 with dilation of PJ anastomosis and stent placement. She was doing well until 04/2024with elevated lipase and concern
for recurrent pancreatitis. During that admission there was concern patient may need dilation of her pancreatic jejunostomy. CT during that admission with dilated PD upstream from PJ anastomosis. She had follow up with Dr. Gaines in June but
unable to do single balloon guarded ERCP at and could try possible pediatric colonoscopy guided but unable to guarantee if he could reach PJ anastomosis.
-recurrent pancreatitis with last episode 04/2024
-hx benign pancreatic tumor-- insulinoma s/p pancreatectomy with jasmin-en-y at [facility] in 2015
- PJ anastomotic stricture with prior single balloon enteroscopy assisted ERCP at [facility] in 2020 with dilation of PJ anastomosis and stent placement
other med problems:
-varun
-pacer
- with prior TAVR
-GERD
PLAN:
Etiology of recurrent pancreatitis with concern for recurrent PJ anastomotic stricture vs other
can dc IVF
Will advance diet to LFD since sx significantly improved
If tolerates diet okay to DC home today
Will reach out to [facility] to get a date for patient to have repeat single balloon assisted ERCP with dilation of the PJ stricture and stent placement
Dr. Gaines had already reached out to the physician at [facility] and at [facility] to see who could get her in sooner
Subjective
Subjective
Date of Service: July 28, 2024
Patient's pain is significantly improved today. No nausea or vomiting remains afebrile, Lipase also trending down
Objective
Data Reviewed
Laboratory Data:
Laboratory Results
07/28/24 05:27
07/28/24 05:27
Laboratory Results
Total Bilirubin 1.1 mg/dl (0.2-1.3) 07/28/24 05:27
AST 20 U/L (14-36) 07/28/24 05:27
ALT 12 U/L (0-35) 07/28/24 05:27
Alkaline Phosphatase 85 U/L (38-126) 07/28/24 05:27
Lipase 1486 U/L (23-300) H* 07/28/24 05:27
Vital Signs and I&O:
Vital Signs
Temp Pulse Resp BP Pulse Ox
97.4 F 81 19 148/103 98
07/28/24 07:05 07/28/24 07:05 07/28/24 07:05 07/28/24 07:05 07/28/24 07:05
I&O
07/27/24 07/28/24 07/29/24
06:59 06:59 06:59
Intake Total 1200 / 1200
Balance 1200 / 1200
Physical Exam
Physical Exam
Cardiology: Normal Sinus Rhythm
Pulmonary: Clear
GI: Soft, Non Distended, Tender (mild epigastric tenderness) and Normal Bowel Sounds
[2024-07-28] MEDS: PROTONIX IV 40 MG IV (08:39)
[2024-07-28] MEDS: NSS (PRESERVATIVE FREE) 10 ML IV (08:39)
[2024-07-28] MEDS: VITAMIN B-12 500 MCG PO (08:41)
[2024-07-28] MEDS: COREG 3.125 MG PO (08:41)
[2024-07-28] MEDS: NORVASC 10 MG PO (08:42)
[2024-07-28] MEDS: FOLVITE 1 MG PO (08:42)
[2024-07-28] MEDS: NSS IV (08:45)
--- NOTE | 2024-07-28 09:09 | W.PN.UPDATE ---
Addendum entered and electronically signed by Pop Mathias MD 07/28/24 13:53:
Called [facility] transfer center and spoke to GI. and Hospitalist. Per Dr. Casas patient was supposed to get a procedure today with Dr. Montgomery. She does not know the details of the procedure. Asked if the patient can get an MRCP to
get that. Ideally they would wait for a procedure of her pancreatitis however if the patient is not getting better and cannot be discharged then they can try and transfer.
Spoke to GI here will order MRI/MRCP.
I did mention to [facility] about patient's pacemaker will need to find out if this is MRI compatible.
Original Note:
Update Note
Progress Note Update
I saw and evaluated the patient. I reviewed the resident�s note and agree with findings and plan as documented in the resident�s note except for changes in documentation
84-year-old female with abdominal pain similar to recurrent pancreatitis
CT abdomen and pelvis-postoperative changes likely partial pancreatectomy. Mild dilatation of the PD with intraluminal gas of the remnant pancreatic body/tail unchanged from prior likely secondary to pancreatic jejunostomy questionable stranding in
the region of PJ may represent pancreatitis. Stable hepatic cysts.
CVS: S1-S2 normal
Chest: CTA B/L
Abdomen: Soft, NT , Bowel sounds present
Extremities: No edema
# Acute pancreatitis likely secondary to PG anastomotic stricture.
History of recurrent pancreatitis
Will need intervention at tertiary facility
History of pancreatic insulinoma status post partial pancreatectomy with pancreatico jejunostomy in 2015 at [facility]
History of single balloon enteroscopy assisted ERCP for PJ anastomotic stricture at [facility] in 2020 with dilatation and stent placement which was then removed.
She had more symptoms in April 2024 was advised to follow-up with Dr. Rodriguez -did not get a call
Dr. Gaines arranged a procedure at [facility] with Dr. Casey at [facility]
Pt needs tertiary facility follow up-Being arranged by our GI
Per GI Dr. Gaines reviewed with Dr. Carol Montgomery at [facility] to expedite follow up appt.
Lipase trended down
Patient started on a diet, she tolerated BF
Pt wants a transfer to tertiary facility.
I called [facility] and spoke to transfer center Jon gave [phone] Fax to fax face sheet
# Hypertension-continue Coreg, amlodipine
# Hypothyroidism-continue Synthroid
# History of Medtronic pacemaker placement 2015
# DVT prophylaxis- Lovenox
# Full code
D/W Case management
D/W RN
D/W GI
will call [facility].
I called [facility] transfer center, reviewed her information, they will call me back
Spoke to patient's daughter Asia and updated about this. Reviewed that transfer criteria will be reviewed by the tertiary center and they will let us know. We will update the family as we get more information.
time spent over 50 min
--- NOTE | 2024-07-28 10:55 | PTOTSP ---
Chart reviewed, spoke with nurse. Patient reports she has remained independent with mobility while here and denies changes or weakness. RN confirms the patient is functionally independent. Patient agreeable to PT signing off and is aware our
services are available if needed.
[2024-07-28 15:05] VITALS: BP 113/63
--- NOTE | 2024-07-28 15:28 | CM ---
Patient seen at bedside.
Spoke with daughter Asia
Spoke with Nguyen at [facility]
IA completed
Resides at [facility] [place], no steps
PLOF: Independent-no device used
DME: Cane, Walker, wheelchair
stated had [facility]N in past, denied rehab
PCP: Britney Farris
Pharmacy: [facility], [facility]
PLAN: ? possible transfer to [facility]
--- NOTE | 2024-07-28 16:03 | PTCARENOTE ---
patient with mild epigastric tenderness. after she ate low fat diet for breakfast, she was continent of large brown liquid stool in toilet and stools. recommended patient to try bland diet for lunch, independent, vss, awaiting transfer to [facility] when
bed available, will continue to monitor.
[2024-07-28] MEDS: LOVENOX 40 MG SC (17:26)
[2024-07-28] MEDS: THERAGRAN 1 TABLET PO (20:00)
[2024-07-28] MEDS: OSCAL 500 + D 500 MG PO (20:00)
[2024-07-28] MEDS: COREG PO (20:04)
[2024-07-28 23:00] VITALS: BP 132/85
--- NOTE | 2024-07-29 04:19 | PTCARENOTE ---
Pt assessed as per work list flow sheet. Pt has had no c/o pain. No s/s of distress assessed yet this shift. Will continue to monitor.
[2024-07-29 06:00] VITALS: BMI 25.1
[2024-07-29] MEDS: SYNTHROID 25 MCG PO (06:07)
[2024-07-29 06:43] LABS: % Basophils 1.1 % (0-2); % Eosinophils 3.8 % (0-6); % Immature Granulocytes 0.4 % (0-0.5); % Monocytes 8.7 % (1.7-9.3); Absolute Basophils 0.1 10^3/uL (0-0.2); Absolute Eosinophils 0.2 10^3/uL (0-0.7); Absolute Lymphocytes 1.5 10^3/uL (1.2-3.4); Absolute Monocytes 0.4 10^3/uL (0.1-0.6); Absolute Neutrophils 2.6 10^3/uL (1.4-6.5); Hematocrit 39.4 % (37.0-47.0); Hemoglobin 13.9 g/dL (12.0-16.0); Mean Corp Hgb Conc. 35.3 g/dL (33.0-37.0); Mean Corpuscular Hgb 31.7 pg (27.0-31.0); Mean Platelet Volume 10.3 fL (7.4-10.4); Nucleated Red Blood Cells % 0 %; Platelet Count 157 10^3/uL (130-400); Red Blood Cell Count 4.38 10^6/uL (4.20-5.40); Red Cell Dist. Width 13.1 % (11.5-14.5); White Blood Cell Count 4.7 10^3/uL (4.8-10.8)
--- NOTE | 2024-07-29 06:53 | W.PN.HOSP.TC ---
Today's Communication/Plan
-
Pain control
Follow lipase
Pending transfer
Assessment / Plan
Assessment / Plan
84-year-old female with benign tumor of pancreas, chronic pancreatitis, s/p Lis-en-Y at [place], aortic stenosis s/p TAVR, GERD, essential hypertension, hypothyroidism, presenting with generalized abdominal pain radiating to the back with nausea.
Denies fever, chills, vomiting, constipation, chest pain, shortness of breath, palpitation. She does have pancreatic stent and permanent pacemaker.
Update: Patient wants to be transferred to a tertiary institution.Called [facility] and spoke to Dr. Sevilla and Dr. Estrada. [facility] reported that patient has not had any appointment in 4 years and would need to call to make the appointment. They
also requested the image of her CT scan uploaded to live image. He said that it is highly unlikely that they will take patient in transfer with improving lipase, normal labs and patient able to tolerate diet. They suggested making the appointment
by calling [phone] now on discharge.
Assessment/plan:
#Acute on chronic pancreatitis
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
-History of balloon enteroscopy assisted ERCP for PD anastomotic stricture [facility] 2020 with dilation and stent placement.
-Lipase normalized.
-Tolerating low-fat diet.
-Appreciate GI.
-Patient requesting transfer to tertiary institution, arrangements underway. Radiology sent CT scan image via live image uploaded to [facility]. Awaiting MRI to upload as requested by [facility].
-Pain control as needed.
-Follow CBC, CMP.
#GERD
-Continue Protonix 40 mg daily.
#Essential hypertension
-Continue Coreg 3.125 mg BID, amlodipine 10 mg with holding parameters.
#Fainting spells
-Check orthostatics.
#Hypothyroidism
-Continue Synthroid.
DVT PPx: Lovenox
CODE STATUS: Full code
Data:
CT abdomen/pelvis 07/27/2024:
Postoperative changes of likely partial pancreatectomy. There is mild dilation of the pancreatic duct with intraluminal gas of the remnant pancreatic body/tail which is unchanged from prior and likely related to the pancreaticojejunostomy. There is
questionable stranding in the region of the pancreaticojejunostomy which may represent pancreatitis. Recommend correlation with lipase values.
Stable hepatic cysts.
Anticipated Discharge: 24 - 48 hours
Subjective/Interval History
-
Date of Service: July 29, 2024
Patient seen at bedside lying comfortably in the bed, in no acute distress. She reports mild postprandial abdominal pain that quickly resolves but otherwise no fever, nausea, vomiting, diarrhea. She denies chest pain or shortness of breath. She
tells me that she canceled her appointment at [facility] last May because she was told that attending doctor would be Dr. Gaines. She decided to follow-up with Dr. Gaines in [place] and did not want to go far from home for the procedure if it was
the same doctor. However, Dr. Gaines told her that the do not have 'long scopes' in the office and could not do the procedure. Now she wants her appointments back with [facility] where she has records. I discussed my interaction with the patient
transfer center last night with patient and updated her that [facility] would like to look at her recent CT scan to make a decision about her potential transfer. Patient understands that if the transfer for stroke, she may have to call [facility] to
make an outpatient appointment.
Objective Data
-
Labs:
Laboratory Results
07/29/24
05:32
WBC 4.7 L
Hgb 13.9
Hct 39.4
Plt Count 157
Sodium Pending
Potassium Pending
Chloride Pending
Carbon Dioxide Pending
BUN Pending
Creatinine Pending
Glucose Pending
Calcium Pending
Total Bilirubin Pending
AST Pending
ALT Pending
Alkaline Phosphatase Pending
Vital Signs:
Vital Signs
Temp Pulse Resp BP Pulse Ox
98.3 F 87 16 132/85 95
07/28/24 23:00 07/28/24 23:00 07/28/24 23:00 07/28/24 23:00 07/28/24 23:00
I&O
07/27/24 07/28/24 07/29/24
06:59 06:59 06:59
Intake Total 1200 / 1200 3480 / 3480
Balance 1200 / 1200 3480 / 3480
Review of Systems
-
History Source: Patient
All other systems: Not reviewed unless documented
Constitutional: Reports No Symptoms; Denies Fever
Respiratory: Reports No Symptoms; Denies Trouble Breathing or Wheezing
Cardiac: Reports No Symptoms; Denies Chest Pain or Palpitations
Abdomen/GI: Reports Abdominal Pain
Genitourinary: Reports No Symptoms
Skin: Reports No Symptoms
Physical Exam
-
General: Well Developed and No Apparent Distress
HEENT: Normocephalic, Atraumatic and Moist Mucous Membranes
Respiratory: Clear to Auscultation
Cardiac: Regular Rhythm and S1/S2; Negative Murmur, Rub or Gallop
GI: Soft, Nondistended, Normal Bowel Sounds and Tender (mild intermittent mid epigastric); Negative Organomegaly
Rectal: Deferred by Provider
Musculoskeletal: No Clubbing, No Cyanosis and No Edema
Skin: Warm; Negative Rash
Neuro: Awake, AO x 3 and Nonfocal/Grossly Intact
Psych: Calm
Data Reviewed
-
CT Scan: Image personally visualized and interpreted, Report Reviewed by me and Discussed with Physician
Labs: Labs Reviewed by me and Discussed with Physician
[2024-07-29 07:09] LABS: ALT (SGPT) 11 U/L (0-35); AST (SGOT) 19 U/L (14-36); Alkaline Phosphatase 84 U/L (38-126); Blood Urea Nitrogen 14 mg/dl (7-17); Calcium 8.9 mg/dl (8.4-10.2); Carbon Dioxide 24 mmol/L (22-30); Chloride 109 mmol/L (98-107); Estimated Creatinine Clearance 48 ml/min; Glucose 94 mg/dl (70-99); Lipase 240 U/L (23-300); Potassium 3.8 mmol/L (3.5-5.1); Sodium 137 mmol/L (135-145); Total Bilirubin 0.6 mg/dl (0.2-1.3); Total Protein 5.3 g/dl (6.3-8.2); eGFR > 60.00
[2024-07-29 07:46] VITALS: BP 151/94
[2024-07-29] MEDS: NORVASC 10 MG PO (08:29)
[2024-07-29] MEDS: FOLVITE 1 MG PO (08:30)
[2024-07-29] MEDS: VITAMIN B-12 500 MCG PO (08:30)
[2024-07-29] MEDS: COREG 3.125 MG PO ×2 (08:30→20:13)
[2024-07-29] MEDS: NSS (PRESERVATIVE FREE) 10 ML IV (08:31)
[2024-07-29] MEDS: PROTONIX IV 40 MG IV (08:31)
--- NOTE | 2024-07-29 16:49 | W.PN.UPDATE ---
Update Note
Progress Note Update
I saw and evaluated the patient. I reviewed the resident�s note and agree with findings and plan as documented in the resident�s note except for changes in documentation
84-year-old female with abdominal pain similar to recurrent pancreatitis
CT abdomen and pelvis-postoperative changes likely partial pancreatectomy. Mild dilatation of the PD with intraluminal gas of the remnant pancreatic body/tail unchanged from prior likely secondary to pancreatic jejunostomy questionable stranding in
the region of PJ may represent pancreatitis. Stable hepatic cysts.
CVS: S1-S2 normal
Chest: CTA B/L
Abdomen: Soft, NT , Bowel sounds present
Extremities: No edema
# Acute pancreatitis likely secondary to PG anastomotic stricture.
History of recurrent pancreatitis
Will need intervention at tertiary facility
History of pancreatic insulinoma status post partial pancreatectomy with pancreatico jejunostomy in 2015 at [place]
History of single balloon enteroscopy assisted ERCP for PJ anastomotic stricture at [place] in 2020 with dilatation and stent placement which was then removed.
She had more symptoms in April 2024 was advised to follow-up with Dr. Rodriguez -did not get a call
Dr. Gaines arranged a procedure at [facility] with Dr. Casey at [facility]
Pt needs tertiary facility follow up-Being arranged by our GI
Per GI Dr. Gaines reviewed with Dr. Carol Montgomery at [facility] to expedite follow up appt.
Lipase trended down
Patient started on a diet, she tolerated diet. Lipase has normalized
Pt wants a transfer to tertiary facility.
I called [facility] and spoke to transfer center yesterday. [facility] asked for an MRI-patient needed verification regarding pacemaker from cardiology finally MRIs done. Results pending
Dr Land spoke to [facility]. Per [facility] patient canceled appointment in May which was given to her from [facility]. When we spoke to her she stated that she thought she could get it done with Dr. Gaines here and not go to [facility] that is
why she canceled it. [facility] indicated outpatient appointment rather than inpatient transfer.
I spoke to both patient and daughter that since she is tolerating diet and lipase has trended down chances of inpatient transfer may or may not happen. However we will reach out to [facility] again once MRI is reported
# Hypertension-continue Coreg, amlodipine
# Hypothyroidism-continue Synthroid
# History of Medtronic pacemaker placement 2015
# DVT prophylaxis- Lovenox
# Full code
Spoke to patient's daughter and updated regarding above
D/W RN
--- NOTE | 2024-07-29 17:22 | W.PN.GI.CBS2 ---
Today's Communication / Plan
-
LFD
Possible DC in a.m. for OP ERCP versus inpatient transfer to [facility] if accepted for procedure
Assessment / Plan
-
Pt is a 84yo presents with hx hearing loss, prior varun, pacer, with prior TAVR, GERD, and benign pancreatic tumor-- insulinoma s/p pancreatectomy with jasmin-en-y at [facility] in 2015. She initially did well post -op but had several episodes of
pancreatitis and had PJ anastomotic stricture noted. She completed single balloon enteroscopy assisted ERCP at [facility] in 2020 with dilation of PJ anastomosis and stent placement. She was doing well until 04/2024with elevated lipase and concern
for recurrent pancreatitis. During that admission there was concern patient may need dilation of her pancreatic jejunostomy. CT during that admission with dilated PD upstream from PJ anastomosis. She had follow up with Dr. Gaines in June but
unable to do single balloon guarded ERCP at and could try possible pediatric colonoscopy guided but unable to guarantee if he could reach PJ anastomosis.
-recurrent pancreatitis with last episode 04/2024
-hx benign pancreatic tumor-- insulinoma s/p pancreatectomy with jasmin-en-y at [facility] in 2015
- PJ anastomotic stricture with prior single balloon enteroscopy assisted ERCP at [facility] in 2020 with dilation of PJ anastomosis and stent placement
other med problems:
-varun
-pacer
- with prior TAVR
-GERD
PLAN:
Etiology of recurrent pancreatitis with concern for recurrent PJ anastomotic stricture vs other
Symptoms significantly improved
Tolerating diet
MRI results noted no obvious evidence of pancreatitis but does have evidence of remnant PD dilatation likely secondary to the stricture
Lipase trended down, normal LFTs
Primary team to reach out to [facility] for plan regarding inpatient versus outpatient single balloon assisted ERCP with dilation of the PJ stricture and stent placement
Subjective
Subjective
Date of Service: July 29, 2024
Pain is almost completely resolved and lipase trending down significantly
Tolerated diet
Objective
Data Reviewed
Laboratory Data:
Laboratory Results
07/29/24 05:32
07/29/24 05:32
Laboratory Results
Total Bilirubin 0.6 mg/dl (0.2-1.3) 07/29/24 05:32
AST 19 U/L (14-36) 07/29/24 05:32
ALT 11 U/L (0-35) 07/29/24 05:32
Alkaline Phosphatase 84 U/L (38-126) 07/29/24 05:32
Lipase 240 U/L (23-300) 07/29/24 05:32
Vital Signs and I&O:
Vital Signs
Temp Pulse Resp BP Pulse Ox
97.6 F 79 16 151/94 96
07/29/24 07:46 07/29/24 08:29 07/29/24 07:46 07/29/24 08:29 07/29/24 07:46
I&O
07/28/24 07/29/24 07/30/24
06:59 06:59 06:59
Intake Total 1200 / 1200 3480 / 3480
Balance 1200 / 1200 3480 / 3480
Physical Exam
Physical Exam
Cardiology: Normal Sinus Rhythm
Pulmonary: Clear
GI: Soft, Non Distended, Non Tender and Normal Bowel Sounds
[2024-07-29] MEDS: LOVENOX 40 MG SC (17:23)
[2024-07-29] MEDS: THERAGRAN 1 TABLET PO (20:14)
[2024-07-29] MEDS: OSCAL 500 + D 500 MG PO (20:14)
[2024-07-29 20:21] VITALS: BP 122/74
[2024-07-29 23:29] VITALS: BP 123/80
[2024-07-30 05:10] VITALS: BMI 24.5
[2024-07-30] MEDS: SYNTHROID 25 MCG PO (05:21)
[2024-07-30 06:19] LABS: % Basophils 1.2 % (0-2); % Eosinophils 3.7 % (0-6); % Immature Granulocytes 0.2 % (0-0.5); % Monocytes 9.9 % (1.7-9.3); ALT (SGPT) 14 U/L (0-35); AST (SGOT) 23 U/L (14-36); Absolute Basophils 0.1 10^3/uL (0-0.2); Absolute Eosinophils 0.2 10^3/uL (0-0.7); Absolute Lymphocytes 1.5 10^3/uL (1.2-3.4); Absolute Monocytes 0.5 10^3/uL (0.1-0.6); Absolute Neutrophils 2.6 10^3/uL (1.4-6.5); Albumin 3.6 g/dl (3.5-5.0); Alkaline Phosphatase 84 U/L (38-126); Blood Urea Nitrogen 18 mg/dl (7-17); Calcium 9.5 mg/dl (8.4-10.2); Carbon Dioxide 25 mmol/L (22-30); Chloride 106 mmol/L (98-107); Estimated Creatinine Clearance 42 ml/min; Glucose 107 mg/dl (70-99); Hematocrit 44.4 % (37.0-47.0); Hemoglobin 15.5 g/dL (12.0-16.0); Mean Corp Hgb Conc. 34.9 g/dL (33.0-37.0); Mean Corpuscular Hgb 31.1 pg (27.0-31.0); Mean Platelet Volume 10.1 fL (7.4-10.4); Nucleated Red Blood Cells % 0 %; Platelet Count 191 10^3/uL (130-400); Potassium 4.1 mmol/L (3.5-5.1); Red Blood Cell Count 4.99 10^6/uL (4.20-5.40); Red Cell Dist. Width 13.2 % (11.5-14.5); Sodium 139 mmol/L (135-145); Total Bilirubin 0.7 mg/dl (0.2-1.3); Total Protein 6.1 g/dl (6.3-8.2); White Blood Cell Count 4.9 10^3/uL (4.8-10.8); eGFR > 60.00
[2024-07-30 07:29] VITALS: BP 136/74
--- NOTE | 2024-07-30 07:58 | W.PN.HOSP.TC ---
Addendum entered and electronically signed by Pop Mathias MD 07/30/24 15:43:
I saw and evaluated the patient. I reviewed the resident�s note and agree with findings and plan as documented in the resident�s note.
Patient was seen earlier today. Late documentation
She was very thankful for the care she got and for the transfer
Exam benign patient tolerating diet
I had talked to [facility] again this morning regarding transfer I was in the process of getting calls back, Called and told radiology to upload images to [facility] for [facility] to review the MRI which was done yesterday.
[facility] had called and patient was accepted at [facility] and they had a bed for her.
She was thankful about the transfer.
Daughter was updated 07/28/24 and 07/29/24, and left a message today again on 07/30/24.
Nursing spoke to daughter and updated regarding transfer. I have not gotten a call back from daughter today.
time spent over 50 min with seeing and transfer process.
Original Note:
Today's Communication/Plan
-
Interhospital transfer
Assessment / Plan
Assessment / Plan
84-year-old female with benign tumor of pancreas, chronic pancreatitis, s/p Lis-en-Y at [facility], aortic stenosis s/p TAVR, GERD, essential hypertension, hypothyroidism, presenting with generalized abdominal pain radiating to the back with nausea.
Denies fever, chills, vomiting, constipation, chest pain, shortness of breath, palpitation. She does have pancreatic stent and permanent pacemaker.
Update: Patient has been accepted at [facility] under Dr. Ahuja.
Assessment/plan:
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
-Follows Dr. Gaines, patient require tertiary facility for the procedure and has been accepted at [facility].
-Lipase normalized, patient tolerating diet.
-Appreciate GI.
-Pain control as needed.
-Follow CBC, CMP.
#GERD
-Continue Protonix 40 mg daily.
#Essential hypertension
-Continue Coreg 3.125 mg BID, amlodipine 10 mg with holding parameters.
#Hypothyroidism
-Continue Synthroid.
DVT PPx: Lovenox
CODE STATUS: Full code
Data:
CT abdomen/pelvis 07/27/2024:
Postoperative changes of likely partial pancreatectomy. There is mild dilation of the pancreatic duct with intraluminal gas of the remnant pancreatic body/tail which is unchanged from prior and likely related to the pancreaticojejunostomy. There is
questionable stranding in the region of the pancreaticojejunostomy which may represent pancreatitis. Recommend correlation with lipase values.
Stable hepatic cysts.
Anticipated Discharge: Today
Subjective/Interval History
-
Date of Service: July 30, 2024
Patient was seen and examined sitting in her bed in no acute distress. Reports no abdominal pain today, able to tolerate her diet. Denies fever, chills, chest pain, shortness of breath, palpitations, nausea or vomiting. I called [facility] and
patient has been accepted under Dr. Ahuja. Updated patient's daughter, Qing Bruno.
Objective Data
-
Labs:
Laboratory Results
07/30/24
05:35
WBC 4.9
Hgb 15.5
Hct 44.4
Plt Count 191 D
Sodium 139
Potassium 4.1
Chloride 106
Carbon Dioxide 25
BUN 18 H
Creatinine 0.8
Glucose 107 H
Calcium 9.5
Total Bilirubin 0.7
AST 23
ALT 14
Alkaline Phosphatase 84
Vital Signs:
Vital Signs
Temp Pulse Resp BP Pulse Ox
97.8 F 83 16 136/74 98
07/30/24 07:29 07/30/24 07:29 07/30/24 07:29 07/30/24 07:29 07/30/24 07:29
I&O
07/29/24 07/30/24 07/31/24
06:59 06:59 06:59
Intake Total 3480 / 3480 720 / 720
Balance 3480 / 3480 720 / 720
Review of Systems
-
History Source: Patient
All other systems: Not reviewed unless documented
Constitutional: Reports No Symptoms; Denies Fever
Respiratory: Reports No Symptoms; Denies Trouble Breathing or Wheezing
Cardiac: Reports No Symptoms; Denies Chest Pain or Palpitations
Abdomen/GI: Denies Abdominal Pain
Genitourinary: Reports No Symptoms
Skin: Reports No Symptoms
Neuro: Reports No Symptoms
Hematologic / Lymphatic: Reports No Symptoms
Physical Exam
-
General: Well Developed and No Apparent Distress
HEENT: Normocephalic, Atraumatic and Moist Mucous Membranes
Respiratory: Clear to Auscultation
Cardiac: Regular Rhythm and S1/S2; Negative Murmur, Rub or Gallop
GI: Soft, Nondistended, Normal Bowel Sounds and Tender (mild intermittent mid epigastric); Negative Organomegaly
Rectal: Deferred by Provider
Musculoskeletal: No Clubbing, No Cyanosis and No Edema
Skin: Warm; Negative Rash
Neuro: Awake, AO x 3 and Nonfocal/Grossly Intact
Psych: Calm
Data Reviewed
-
MRI: Report Reviewed by me and Discussed with Physician
Labs: Labs Reviewed by me, Discussed with Physician and Discussed with Patient
[2024-07-30] MEDS: VITAMIN B-12 500 MCG PO (08:37)
[2024-07-30] MEDS: COREG 3.125 MG PO (08:40)
[2024-07-30] MEDS: FOLVITE 1 MG PO (08:40)
[2024-07-30] MEDS: NORVASC 10 MG PO (08:41)
[2024-07-30] MEDS: NSS (PRESERVATIVE FREE) 10 ML IV (08:41)
[2024-07-30] MEDS: PROTONIX IV 40 MG IV (08:41)
--- NOTE | 2024-07-30 10:10 | CM ---
Spoke with resident.
Pt to be transferred to [facility] with Dr Leigha reid MD.
[phone] she said after pt transferred to [facility] they will need to send clinical . No prior auth needed.She said [facility] is a covered facility.
Daughter Asia notified of above .
PLAN To [facility] when bed available
--- NOTE | 2024-07-30 12:31 | W.DCSUMMARY ---
Addendum entered and electronically signed by Carlos Land MD, Resident 08/02/24 15:22:
Home Medications
�Medication �Instructions �Recorded
carvedilol 3.125 mg tablet (Coreg) 3.125 mg PO BID Blood Pressure 01/02/22
levothyroxine 25 mcg tablet 25 mcg PO DAILY Thyroid 01/02/22
(Synthroid)
hvbzwvslgrlu-zcecxvku-ekjzao tablet 1 tab PO HS Supplement 01/02/22
amlodipine 10 mg tablet 10 mg PO DAILY Blood Pressure 07/27/24
calcium 600 mg (as 1 tab PO HS Supplement 07/27/24
carbonate)-vitamin D3 10 mcg (400
unit) tablet (Calcium 600 + D(3))
vitamin B12 0.5 mg-folic acid 1 mg 1 tab PO DAILY Supplement 07/27/24
tablet
Addendum entered and electronically signed by Pop Mathias MD 07/31/24 16:28:
Read, reviewed, and agree. See same day progress note for additional details. Time spent coordinating care, DC planning, review of DC plan of care with resident, transition of care, review of records in EMR, med rec, consults, notes, d/w
consultants, nursing, family, and CM
Original Note:
Documented by User: Carlos Land MD, Resident 07/30/24 15:41
Discharge Summary
Discharge Data
Date of Admission: 07/27/24
Date of Discharge: 07/30/24
-
Pending Results: No
Hospital Course
Discharging Physician : Stew Lord MD ; Carlos Land MD
Disposition : Acute care hospital
Principal Discharge diagnosis : Acute on chronic pancreatitis
Chronic Discharge diagnosis :
History of pancreatic insulinoma
GERD
Essential hypertension
Hypothyroidism
Fainting spells
Hospital Course : 84-year-old female with PMH of pancreatic insulinoma s/p partial pancreatectomy with pancreatico-jejunostomy in 2015 at [facility], recurrent pancreatitis afterwards and subsequently diagnosed with PJ anastomotic stricture with
single balloon enteroscopy assisted ERCP in 2020 at [facility] with dilation and stent placement. She presents to with nausea and intermittent epigastric abdominal pain radiating to the back. On admission, patient's lipase was >4000, with a CRP
of 37.2. Patient was placed NPO, and was started on IV fluid. GI consulted and patient was admitted for further evaluation and management. Over the next 24 hours, patient's lipase improved and her diet was advanced to low-fat diet. Patient
continued to tolerate diet with no further nausea but continued to report mild abdominal pain with food and requested to transfer to [facility] where she is well-known for more than 4 years. Request for transfer was put out to both [facility] and
[facility]. Patient was accepted at [facility] under Dr. Ahuja and arrangements for transfers were made and completed.
Condition on discharge: Awake, alert and oriented x3, answer question properly, able to make own decision and take care of activities of daily living, speech clear and comprehensive, continent of the bowel and bladder, ambulate without assistance.
Patient is medically stable for transport by ground. All questions answered, patient's daughters updated.
Important imaging findings :
CT abdomen/pelvis 07/27/2024:
Postoperative changes of likely partial pancreatectomy. There is mild dilation of the pancreatic duct with intraluminal gas of the remnant pancreatic body/tail which is unchanged from prior and likely related to the pancreaticojejunostomy. There is
questionable stranding in the region of the pancreaticojejunostomy which may represent pancreatitis. Recommend correlation with lipase values.
Stable hepatic cysts.
Abdominal MRI 07/29/2024:
Partial pancreatectomy change. No convincing MR evidence for acute pancreatitis, fluid collection or necrosis.
Discharge Plan
-
Patient Disposition: Acute Care Hospital
Condition: Fair
Discharge Orders:
Discharge Patient (As Directed); Ordered 07/30/24
Ordered By: Carlos Land
Discharge Date and Time
Discharge Date/Time: 07/30/24 15:24
Print Language: YI

Documented by User: Pop Mathias MD 07/31/24 16:24
Discharge Summary
Discharge Data
Date of Admission: 07/27/24
Date of Discharge: 07/31/24
Discharge Plan
-
Patient Disposition: Acute Care Hospital
Condition: Fair
Discharge Orders:
Discharge Patient (As Directed); Ordered 07/30/24
Ordered By: Carlos Land
Discharge Date and Time
Discharge Date/Time: 07/30/24 15:24
Print Language: YI
--- NOTE | 2024-07-30 14:37 | TRANSFER ---
Report called to [facility]AG[facility] @[phone]. IV remains per RN request. Pt AAOx3, [facility], and ready for transfer. Daughter (Asia) updated over the phone about transfer. Awaiting EMS pickup.
[2024-07-30 15:00] VITALS: BP 110/68
== END 2024-07-30 15:24 | disposition short-term general hospital (02) | DRG 440 ==
LOC: 3 WEST ACU 13:15
PROVIDERS: Clinical Nurse Specialist Family Health; Emergency Medicine; Nurse Practitioner; Student in an Organized Health Care Education/Training Program; ADMITTING PHYSICIAN Hospitalist; ATTENDING PHYSICIAN Hospitalist; CONSULT PHYSICIAN Internal Medicine Gastroenterology; EMERGENCY PHYSICIAN Student in an Organized Health Care Education/Training Program
DX: K85.90 Acute pancreatitis without necrosis or infection, unspecified (principal); K21.9 Gastro-esophageal reflux disease without esophagitis; I10 Essential (primary) hypertension; E03.9 Hypothyroidism, unspecified; K76.89 Other specified diseases of liver; R55 Syncope and collapse; Z79.899 Other long term (current) drug therapy; Z98.84 Bariatric surgery status; K86.1 Other chronic pancreatitis; Z80.6 Family history of leukemia
CPT/HCPCS: 74177; 74183; 80053; 81003; 83690; 85025; 86140; 96360; 99285; A9575; Q9967